=== PATIENT | female | born 1965 | race African-American/Black ===

== ENCOUNTER → 2019-03-10 | Outpatient (CLI) | payer MEDICARE, OTHER ==
[2019-03-07 10:58] LABS: BASOPHILS % 0.3 % (0.0-1.0); EOSINOPHILS % 0.5 % (0.0-6.0); HEMATOCRIT 36.9 % (34.2-44.1); HEMOGLOBIN 11.7 g/dL (12.0-16.0); LYMPHOCYTES # (AUTO) 3.8 (1.0-3.2); LYMPHOCYTES % 50.7 % (18.0-39.1); MEAN CORPUSCULAR HEMOGLOBIN 29.3 pg (28-32); MEAN CORPUSCULAR HGB CONC 31.7 g/dL (31-35); MEAN CORPUSCULAR VOLUME 92.5 fL (81-99); MONOCYTES # (AUTO) 0.4 (0.2-0.8); MONOCYTES % 5.8 % (4.4-11.3); NEUTROPHILS # (AUTO) 3.1 (2.1-6.9); NEUTROPHILS % 41.6 % (38.7-80.0); PLATELET COUNT 317 x10e3/uL (140-360); RED BLOOD COUNT 3.99 x10e6/uL (3.6-5.1); RED CELL DISTRIBUTION WIDTH 14.3 % (11.7-14.4)
[2019-03-07 11:20] LABS: ANION GAP 15.6 mmol/L (8-16); BLOOD UREA NITROGEN 13 mg/dL (7-26); BUN/CREATININE RATIO 18 (6-25); CALCIUM 9.4 mg/dL (8.4-10.2); CARBON DIOXIDE 31 mmol/L (22-29); CHLORIDE 98 mmol/L (98-107); CREATININE, SERUM 0.74 mg/dL (0.57-1.11); EST GLOMERULAR FILTRATION RATE > 60 ML/MIN (60-); GLUCOSE 132 mg/dL (74-118); POTASSIUM 3.6 mmol/L (3.5-5.1); SODIUM 141 mmol/L (136-145)
--- NOTE | 2019-03-07 12:26 | Diagnostic Imaging Report ---
EXAM: CHEST 2 VIEWS DATE: 03/07/2019 10:18 AM INDICATION: Local cord mass, preoperative evaluation COMPARISON: None FINDINGS: The trachea is midline. The lungs are symmetrically expanded without evidence for large focal consolidation, pneumothorax, or significant pleural effusion. The cardiac silhouette appears at the upper limits of normal for size. Mediastinal contours are unremarkable. No acute osseous abnormality is identified. The surrounding soft tissues are unremarkable. IMPRESSION: No acute cardiopulmonary process identified. Signed by: Dr. Jaime Ramirez MD on 03/07/2019 12:23 PM
[~2019-03-10] MED LIST: ACETAMINOPHEN 1000 MG/100 ML 100 ML IV ONE; BUPROPION XL150 MG PO; CLONAZEPAM1 MG PO; FLONASE; GABAPENTIN300 MG PO; HYDROCHLOROTHIA25 MG PO; HYDROCODON-ACE1 EAC9 PO; LEXAPRO10 MG PO; LIDOCAINE HCL (LTA) 4 ML SOLN ONE; LINZESS72 MCG PO; NITROGLYCERIN0.4 MG SL; NITROGLYCERIN1 EAC1 TOP; OXYCARBAZEPINE PO; OXYMETAZOLINE HCL 0.05% NAS 1 SPRAY BTL ONE; PLAVIX75 MG PO; SUGAMMADEX SODIUM 200 MG/2 ML VIAL IV ONE; TEMAZEPAM15 MG PO; TRULICITY1.5 MG/0.5 SC
--- OUTSIDE RECORDS SUMMARY | 2019-03-17 11:50 | XMS REPORT ---
Author [facility] Address Unknown Phone Unavailable Care Team Providers Care Egg Breaker Name Role Phone MARIA GUADALUPE LA Unavailable Unavailable Payers Payer Name Policy Type Policy Number Effective Date Expiration Date Problems This patient has no known problems. Allergies, Adverse Reactions, Alerts Allergy Name Allergy Type Status Severity Reaction(s) Onset Date Inactive Date Treating Clinician Comments Antihistamines - Alkylamine DA Active 2018-05-25 00:00:00 peanut DA Active 2018-05-25 00:00:00 hydrocodone DA Active 2018-05-25 00:00:00 lactose DA Active NH 2018-05-25 00:00:00 zolpidem DA Active 2018-05-25 00:00:00 latex DA Active 2018-05-25 00:00:00 peanut FA Active 2018-05-25 00:00:00 lactose FA Active NH 2018-05-25 00:00:00 hydrocodone DA Active 2018-03-08 00:00:00 zolpidem DA Active 2018-03-08 00:00:00 Antihistamines - Alkylamine DA Active 2018-02-10 00:00:00 peanut DA Active SV 2018-02-10 00:00:00 lactose DA Active NH 2018-02-10 00:00:00 latex DA Active 2018-02-10 00:00:00 LACTOSE INTOLERANT DA Active U 2017-03-11 00:00:00 RYE BREAD DA Active U 2017-03-11 00:00:00 peanut DA Active SV 2017-03-10 00:00:00 Antihistamines - Alkylamine DA Active SV 2014-08-13 00:00:00 lactose DA Active NH 2014-08-13 00:00:00 latex DA Active SV 2014-08-13 00:00:00 Medications This patient has no known medications. Results Test Description Test Time Test Comments Text Results Atomic Results Result Comments CHEST 2 VIEWS 2019-03-07 12:22:00 [facility] [address] [address] Patient Name: HIGINIO DENSON MR #: [id number] : 1965 Age/Sex: 53/F Req #: [id number] Adm Physician: Ordered by: BESSIE LYNN, MARIA GUADALUPE LYNN Report #: [id number] Location: OR Room/Bed: Procedure: [id number] DX/CHEST 2 VIEWS Exam Date: Exam Time: REPORT STATUS: Signed EXAM: CHEST 2 VIEWS DATE: 03/07/2019 10:18 AM INDICATION: Local cord mass, preoperative evaluation COMPARISON: None FINDINGS: The trachea is midline. The lungs are symmetrically expanded without evidence for large focal consolidation, pneumothorax, or significant pleural effusion. The cardiac silhouette appears at the upper limits of normal for size. Mediastinal contours are unremarkable. No acute osseous abnormality is identified. The surrounding soft tissues are unremarkable. IMPRESSION: No acute cardiopulmonary process identified. Signed by: Dr. Jaime Ramirez MD on 03/07/2019 12:23 PM Dictated By: JAIME RAMIREZ MD 1223 Transcribed By: JIN on 03/07/19 1223 COPY TO: MARIA GUADALUPE LA - MRI UPPER EX W/O CONT LT 2019-02-28 14:29:00 FAX: Shila Conway MD [phone] [place]: St: [facility] FAX: Karin Gamez [phone] Name: HIGINIO MACIAS [facility] : 1965 Age/S: 53/F [address] [place] [address] Unit #: [id number] Loc: [place] [address] Phys: Shila Ragland MD Acct: [id number] Dis Date: Status: REG CLI PHONE #: [phone] Exam Date: 02/28/2019 1012 FAX #: [phone] Reason: PAIN IN LEFT HAND EXAMS: CPT CODE: [id number] [place] [address] - MRI UPPER EX W/O CONT LT, 02/28/2019 8:10 AM INDICATION: Pain in hand COMPARISON: None TECHNIQUE: Multi-planar, multi-sequence MR imaging of the left hand was performed using routine protocol without gadolinium-based contrast. AREA IMAGED: Left hand FINDINGS: . Soft tissues: Soft tissues are unremarkable. No extra articular fluid collections. . Bones: No evidence for acute fracture. Marrow signals within normal limits. No bone marrow edema. . Joints: Moderate degenerative changes at the 1st CMC joint. There is also mild degenerative changes at the interphalangeal joints with small dorsal osteophytes. No joint effusions or synovitis. No evidence for bony erosions. . Tendons: The extensor and flexor tendons are intact. No evidence for tenosynovitis. . Additional Comments: None IMPRESSION: Osteoarthritis. No acute internal derangement. SL: EDVIN at 1429 Reported and signed by: Samuel Tong M.D. CC: Shila Ragland MD; Karin Adkins MD Technologist: RT Eulalio(R)(MR) Trnscrd Date/Time/By: 02/28/2019 (5843) : By: [email or web address] Orig Print D/T: S: 02/28/2019 (1497) PAGE 1 Signed Report - MRI UPPER EX W/O CONT RT 2019-02-28 14:20:00 FAX: Shila Conway MD [phone] [place]: St: REG FAX: Karin Gamez [phone] Name: HIGINIO MACIAS [facility] : 1965 Age/S: 53/F [address] [place] [address] Unit #: [id number] Loc: [place] [address] Phys: Shila Ragland MD Acct: [id number] Dis Date: Status: REG CLI PHONE #: [phone] Exam Date: 02/28/2019 1012 FAX #: [phone] Reason: PAIN IN RIGHT HAND EXAMS: CPT CODE: [id number] MRI UPPER EX W/[place] [address] - MRI UPPER EX W/O CONT RT, 02/28/2019 8:10 AM INDICATION: Right hand pain COMPARISON: None TECHNIQUE: Multi-planar, multi-sequence MR imaging of the right hand was performed using routine protocol without gadolinium-based contrast. AREA IMAGED: Hand FINDINGS: . Soft tissues: Soft tissues unremarkable. No extra-articular fluid collections . Bones: Marrow signal is within normal limits. No bone marrow edema. No evidence for fracture. . Joints: Minimal degenerative changes at the 1st CMC joint. Otherwise joint spaces are maintained. Negative for joint effusion or synovitis. No bony erosions. . Tendons: Extensor and flexor tendons are intact. No evidence for tenosynovitis. . Additional Comments: None IMPRESSION: 1. Minimal degenerative changes at the 1st CMC joint. Otherwise unremarkable MRI of the right hand. SL: EDVIN at 1420 Reported and signed by: Samuel Tong M.D. CC: Shila Ragland MD; Karin Adkins MD Technologist: RT Eulalio(R)(MR) Trnscrd Date/Time/By: 02/28/2019 (9050) : By: [email or web address] Orig Print D/T: S: 02/28/2019 (4801) PAGE 1 Signed Report - XR SHOULDER 2 + V LT 2019-02-28 11:30:00 FAX: Shila Conway MD [phone] [place]: St: REG FAX: Karin Gamez [phone] Name: HIGINIO MACIAS [facility] : 1965 Age/S: 53/F [address] [place] [address] Unit #: [id number] Loc: [place] [address] Phys: Shila Ragland MD Acct: [id number] Dis Date: Status: REG CLI PHONE #: [phone] Exam Date: 02/28/2019 1038 FAX #: [phone] Reason: M25.512, PAIN IN LEFT SHOULDER. EXAMS: CPT CODE: [id number] XR SHOULDER 2 + [place] [address] PROCEDURE: 3 views of the left shoulder INDICATION: 53-year-old female with left shoulder pain COMPARISON: None. FINDINGS: No acute fracture or dislocation identified. Humeral head is well-seated in the glenoid fossa. Calcifications noted along the superolateral aspect of the humeral head. IMPRESSION: 1. No acute fracture or dislocation identified in the left shoulder. 2. Findings consistent with calcific tendinitis. SL: [id number] at 1130 Reported and signed by: Tonya Gardner M.D. CC: Shila Ragland MD; Karin Adkins MD Technologist: RT Elicia(R) Trnscrd Date/Time/By: 02/28/2019 (4227) : By: [email or web address] Orig Print D/T: S: 02/28/2019 (2597) PAGE 1 Signed Report - XR C-SPINE 2-3 VIEWS 2018-08-23 14:21:00 FAX: Gino Baires MD [phone] [place]: St: REG FAX: Karin Gamez [phone] Name: HIGINIO MACIAS [facility] : 1965 Age/S: 53/F [address] [place] [address] Unit #: [id number] Loc: [place] [address] Phys: Gino Paredes MD Acct: [id number] Dis Date: Status: REG CLI PHONE #: [phone] Exam Date: 08/23/2018 1406 FAX #: [phone] Reason: M54.2, CERVICALGIA. EXAMS: CPT CODE: [id number] XR C-SPINE 2-3 VIEWS 36307 Cervical spine 3 views 08/23/2018 HISTORY: Neck pain FINDINGS: Open-mouth view of the dens is within normal limits. There is straightening of the cervical spine. Vertebral body heights are maintained. Alignment is preserved. Disc space narrowing and osteophytes are present at C5-6. Small osteophytes at C4-5 are noted. No prevertebral soft tissue swelling is noted. IMPRESSION: 1. No malalignment, fracture, or soft tissue swelling. 2. Mild degenerative disc disease at C5-6. 3. Straightening of cervical spine which may be related to patient positioning or muscle spasm. SL: [id number] at 1421 Reported and signed by: Jourdan Cotton M.D. CC: Gino Paredes M.D.; Karin Adkins MD Technologist: RT Na(Marjan) Trnscrd Date/Time/By: 08/23/2018 (9156) : By: [email or web address] Orig Print D/T: S: 08/23/2018 (6846) PAGE 1 Signed Report - XR L-SPINE 2/3 VIEWS 2018-08-23 14:20:00 FAX: Gino Baires MD [phone] [place]: St: REG FAX: Karin Gamez [phone] Name: HIGINIO MACIAS [facility] : 1965 Age/S: 53/F [address] [place] [address] Unit #: [id number] Loc: [place] [address] Phys: Gino Paredes MD Acct: [id number] Dis Date: Status: REG CLI PHONE #: [phone] Exam Date: 08/23/2018 1407 FAX #: [phone] Reason: M54.5, LOW BACK PAIN. EXAMS: CPT CODE: [id number] XR L-SPINE 2/3 VIEWS 15827 Lumbar spine 3 views 08/23/2018 HISTORY: Low back pain No prior exams are available for comparison FINDINGS: There is normal alignment of the lumbar spine. Vertebral body heights are maintained. Small osteophytes at L3-4 and L4-5 are noted. Facet sclerosis at L4-5 is noted. Pedicles and spinous processes are within normal limits. IMPRESSION: 1. No malalignment or fracture. 2. Mild degenerative changes at L3-4 and L4-5. SL: [id number] at 1420 Reported and signed by: Jourdan Cotton M.D. CC: Gino Paredes M.D.; Karin Adkins MD Technologist: RT Na(R) Trnscrd Date/Time/By: 08/23/2018 (0854) : By: [email or web address] Orig Print D/T: S: 08/23/2018 (3073) PAGE 1 Signed Report - XR KNEE 1 OR 2 V BI 2018-08-23 14:13:00 FAX: Gino Baires MD [phone] [place]: St: REG FAX: Karin Gamez [phone] Name: GONZALOMICHAUDHIGINIO [facility] : 1965 Age/S: 53/F [address] [place] [address] Unit #: [id number] Loc: [place] [address] Phys: Gino Paredes MD Acct: [id number] Dis Date: Status: REG CLI PHONE #: [phone] Exam Date: 08/23/2018 1402 FAX #: [phone] Reason: M25.561, M25.562, PAIN IN RIGHT, LEFT KNEE. EXAMS: CPT CODE: [id number] XR KNEE 1 [place] [address] BILATERAL KNEES, 2 VIEWS EACH 08/23/2018 COMPARISON: March 08, 2018 and August 13, 2014 CLINICAL HISTORY: M25.561, M25.562, PAIN IN RIGHT, LEFT KNEE. FINDINGS: No acute fracture or dislocation is noted. The left knee demonstrates a left knee prosthesis which is in anatomic alignment. No significant joint space narrowing or knee joint effusion is present. The right knee again demonstrates a small bony exostosis along the proximal aspect of the medial tibia. This is stable. No significant knee joint effusion noted in the right knee. CONCLUSION: No acute osseous abnormality. Status post changes of prior left knee arthroplasty. at 1413 Reported and signed by: Ronaldo Duke M.D. CC: Gino Paredes M.D.; Karin Adkins MD Technologist: RT Na(Marjan) Trnscrd Date/Time/By: 08/23/2018 (2771) : By: [email or web address] Orig Print D/T: S: 08/23/2018 (8012) PAGE 1 Signed Report - XR T-SPINE 2 VIEWS 2018-08-23 14:11:00 FAX: Gino Baires MD [phone] [place]: St: REG FAX: Karin Gamez [phone] Name: RAMANJonahHIGINIO [facility] : 1965 Age/S: 53/F [address] [place] [address] Unit #: [id number] Loc: [place] [address] Phys: Gino Paredes MD Acct: [id number] Dis Date: Status: REG CLI PHONE #: [phone] Exam Date: 08/23/2018 140 FAX #: [phone] Reason: M54.6, PAIN IN THORACIC SPINE. EXAMS: CPT CODE: [id number] XR T-SPINE 2 VIEWS 56775 THORACIC SPINE 2 VIEWS: Comparison: None CLINICAL HISTORY: Thoracic spine pain FINDINGS: The thoracic vertebra were normal in height. No fracture or bony destruction was seen. There are diffuse marginal osteophytes throughout the mid to lower thoracic spine. No lytic or blastic lesion is seen. IMPRESSION: No acute osseous abnormality. at 1411 Reported and signed by: Ronaldo Duke M.D. CC: Gino Paredes M.D.; Karin Adkins MD Technologist: RT Na(R) Trnscrd Date/Time/By: 08/23/2018 (1419) : By: [email or web address] Orig Print D/T: S: 08/23/2018 (5429) PAGE 1 Signed Report GLUBED 2018-06-13 13:32:00 GLUBED (test code=GLUBED) 237 mg/dL 70-110 [id number] 13:32:00* Test Item Value Reference Range Comments GLUBED (test code=GLUBED) 225 mg/dL 70-110 [id number] 16:58:00* Test Item Value Reference Range Comments GLUBED (test code=GLUBED) 233 mg/dL 70-110 [id number] 13:57:00* Test Item Value Reference Range Comments GLUBED (test code=GLUBED) 310 mg/dL 70-110 [id number] 13:57:00* Test Item Value Reference Range Comments GLUBED (test code=GLUBED) 222 mg/dL 70-110 [id number] 13:57:00* Test Item Value Reference Range Comments GLUBED (test code=GLUBED) 141 mg/dL 70-110 [id number] 05:58:00* Test Item Value Reference Range Comments GLUBED (test code=GLUBED) 227 mg/dL 70-110 [id number] 03:49:00* Test Item Value Reference Range Comments GLUBED (test code=GLUBED) 213 mg/dL 70-110 [id number] 03:49:00* Test Item Value Reference Range Comments GLUBED (test code=GLUBED) 228 mg/dL 70-110 [id number] 07:54:00* Test Item Value Reference Range Comments GLUBED (test code=GLUBED) 162 mg/dL 70-110 - XR CHEST 1 [id number] 22:10:00 FAX: Petey Panchal MD [phone] [place]: St: [facility] FAX: Kierra Aguero [phone] FAX: Karin Gamez [phone] Name: HIGINIO MACIAS [facility] : 1965 Age/S: 53/F [address] [facility] Unit #: [id number] Loc: [address] [place], [place] Phys: Kierra AgueroP [address] Acct: [id number] Dis Date: Status: ADM IN ONE #: [phone] Exam Date: 06/08/20182143 FAX #: [phone] Reason: SOB EXAMS: CPT CODE: [id number] XR CHEST 1 V 21465 Location: U19. CHEST, FRONTAL VIEW HISTORY: SOB FINDINGS: Since 06/02/18, the right subclavian l ine has been removed. There is some improvement in the bilateral mixed pu lmonary opacities. The heart remains enlarged. Degenerative changes affe ct the thoracic spine. IMPRESSION: Remov al of the right subclavian line. Mild improvement in the bilat eral mixed pulmonary opacities may relate to improving pulmonary edema a nd/or pneumonia. at 2210 Reported and signed by: Bibi Bazan M.D. CC: Petey Connor MD; Kierra Aguero; Karin Adkins MD Technologist: DANA FERRIS; NARDA CASTELLANOS Trnscrd Date/Time/By: 9 (9114) : By: [email or web address] PAGE 1 Signed Report FAX: Petey Panchal MD [phone] [place]: St: [facility] FAX: Kierra Aguero FN [phone] FAX: Karin Gamez [phone] Name: HIGINIO MACIAS [facility] : 1965 Age/S: 53/F [address] [facility] Unit #: [id number] Loc: [address] [place], [place] Phys: Kierra Aguero [employer] [address] Acct: [id number] Dis Date: Status: ADM IN PHONE #: [phone] Exam Date: 06/08/20182143 FAX #: [phone] Reason: SOB EXAMS: CPT CODE: [id number] XR CHEST 1 V 59272 <Continued> Orig Print D/T: S: 06/08/2018 (9587) PAGE 2 Signed Report [id number] 21:22:00* Test Item Value Reference Range Comments GLUBED (test code=GLUBED) 221 mg/dL 70-110 [id number] 21:22:00* Test Item Value Reference Range Comments GLUBED (test code=GLUBED) 173 mg/dL 70-110 [id number] 16:01:00* Test Item Value Reference Range Comments GLUBED (test code=GLUBED) 203 mg/dL 70-110 BASIC METABOLIC [id number] 06:06:00* Test Item Value Reference Range Comments SODIUM (test code=NA) 139 mmol/l 134.0-147.0 POTASSIUM (test code=K) 4.3 mmol/L 3.6-5.2 CHLORIDE (test code=CL) 101 mmol/l 98.0-107.0 CARBON DIOXIDE (test code=CO2) 27.8 mmol/l 21.0-33.0 ANION GAP (test code=GAP) 14.5 0-20 GLUCOSE (test code=GLU) 199 mg/dl 70.0-110.0 BLOOD UREA NITROGEN (test code=BUN) 13 mg/dl 7.0-18.0 CREATININE (test code=CREAT) 0.63 mg/dL 0.60-1.30 GFR NON BLACK (test code=GFRNONBLACK) 105 mL/min 90-95 GFR BLACK (test code=GFRBLACK) 127 mL/min 109-115 CALCIUM (test code=CA) 10.0 mg/dl 8.0-10.5 [id number] 04:39:00* Test Item Value Reference Range Comments GLUBED (test code=GLUBED) 202 mg/dL 70-110 [id number] 19:19:00* Test Item Value Reference Range Comments GLUBED (test code=GLUBED) 217 mg/dL 70-110 [id number] 16:58:00* Test Item Value Reference Range Comments GLUBED (test code=GLUBED) 245 mg/dL 70-110 [id number] 10:57:00* Test Item Value Reference Range Comments GLUBED (test code=GLUBED) 200 mg/dL 70-110 [id number] 10:57:00* Test Item Value Reference Range Comments GLUBED (test code=GLUBED) 180 mg/dL 70-110 [id number] 00:29:00* Test Item Value Reference Range Comments GLUBED (test code=GLUBED) 214 mg/dL 70-110 [id number] 22:46:00* Test Item Value Reference Range Comments GLUBED (test code=GLUBED) 253 mg/dL 70-110 [id number] 20:43:00* Test Item Value Reference Range Comments GLUBED (test code=GLUBED) 295 mg/dL 70-110 [id number] 20:43:00* Test Item Value Reference Range Comments GLUBED (test code=GLUBED) 190 mg/dL 70-110 [id number] 20:43:00* Test Item Value Reference Range Comments GLUBED (test code=GLUBED) 175 mg/dL 70-110 [id number] 15:35:00* Test Item Value Reference Range Comments GLUBED (test code=GLUBED) 187 mg/dL 70-110 BASIC METABOLIC [id number] 07:51:00* Test Item Value Reference Range Comments SODIUM (test code=NA) 140 mmol/l 134.0-147.0 POTASSIUM (test code=K) 3.4 mmol/L 3.6-5.2 CHLORIDE (test code=CL) 98 mmol/l 98.0-107.0 CARBON DIOXIDE (test code=CO2) 30.1 mmol/l 21.0-33.0 ANION GAP (test code=GAP) 15.3 0-20 GLUCOSE (test code=GLU) 197 mg/dl 70.0-110.0 BLOOD UREA NITROGEN (test code=BUN) 14 mg/dl 7.0-18.0 CREATININE (test code=CREAT) 0.80 mg/dL 0.60-1.30 GFR NON BLACK (test code=GFRNONBLACK) 80 mL/min 90-95 GFR BLACK (test code=GFRBLACK) 96 mL/min 109-115 CALCIUM (test code=CA) 10.5 mg/dl 8.0-10.5 PER NURSE UNABLE TO PULL FROM LINELINE [id number] 07:51:00* Test Item Value Reference Range Comments MAGNESIUM (test code=MAG) 1.9 mg/dl 1.8-2.4 PER NURSE UNABLE TO PULL FROM LINELINE DRAWCBC W/AUTO [id number] 07:47:00* Test Item Value Reference Range Comments WHITE BLOOD CELL (test code=WBC) 9.1 K/mm3 4.5-11.0 RED BLOOD CELL (test code=RBC) 4.39 M/mm3 3.80-5.20 HEMOGLOBIN (test code=HGB) 13.0 gm/dL 12.0-16.0 HEMATOCRIT (test code=HCT) 41.8 % 36.0-48.0 MEAN CELL VOLUME (test code=MCV) 95.2 UM3 82.0-99.0 MEAN CELL HGB (test code=MCH) 29.6 UUG 25.5-32.5 MEAN CELL HGB CONCETRATION (test code=MCHC) 31.1 gm/dL 29.0-35.5 RED CELL DISTRIBUTION WIDTH (test code=RDW) 14.1 % 11.5-15.0 RED CELL DISTRIBUTION WIDTH SD (test code=RDW-SD) 50.0 fL 34.8-50.2 PLATELET COUNT (test code=PLT) 731 K/mm3 150-400 MEAN PLATELET VOLUME (test code=MPV) 9.7 fl 7.4-10.4 NEUTROPHIL % (test code=NT%) 46.4 % 49.0-76.0 IMMATURE GRANULOCYTE % (test code=IG%) 0.6 % 0.0-0.4 LYMPHOCYTE % (test code=LY%) 42.1 % 23.0-38.0 MONOCYTE % (test code=MO%) 7.2 % 1.0-10.0 EOSINOPHIL % (test code=EO%) 3.1 % 1.0-5.0 BASOPHIL % (test code=BA%) 0.6 % 0.0-1.0 NEUTROPHIL # (test code=NT#) 4.2 K/mm3 2.4-6.3 IMMATURE GRANULOCYTE # (test code=IG#) 0.05 x10 3/uL 0.00-0.07 LYMPHOCYTE # (test code=LY#) 3.8 K/mm3 1.2-4.0 MONOCYTE # (test code=MO#) 0.7 K/mm3 0.0-0.6 EOSINOPHIL # (test code=EO#) 0.3 K/MM3 0.0-0.7 BASOPHIL # (test code=BA#) 0.1 K/mm3 0.0-0.2 PER NURSE UNABLE TO PULL FROM LINELINE [id number] 02:52:00* Test Item Value Reference Range Comments GLUBED (test code=GLUBED) 194 mg/dL 70-110 [id number] 17:54:00* Test Item Value Reference Range Comments GLUBED (test code=GLUBED) 204 mg/dL 70-110 [id number] 12:50:00* Test Item Value Reference Range Comments GLUBED (test code=GLUBED) 193 mg/dL 70-110 [id number] 12:50:00* Test Item Value Reference Range Comments GLUBED (test code=GLUBED) 190 mg/dL 70-110 [id number] 10:00:00* Test Item Value Reference Range Comments GLUBED (test code=GLUBED) 213 mg/dL 70-110 [id number] 08:31:00* Test Item Value Reference Range Comments GLUBED (test code=GLUBED) 186 mg/dL 70-110 [id number] 08:31:00* Test Item Value Reference Range Comments GLUBED (test code=GLUBED) 179 mg/dL 70-110 BASIC METABOLIC [id number] 06:13:00* Test Item Value Reference Range Comments SODIUM (test code=NA) 141 mmol/l 134.0-147.0 POTASSIUM (test code=K) 3.1 mmol/L 3.6-5.2 CHLORIDE (test code=CL) 100 mmol/l 98.0-107.0 CARBON DIOXIDE (test code=CO2) 33.5 mmol/l 21.0-33.0 ANION GAP (test code=GAP) 10.6 0-20 GLUCOSE (test code=GLU) 195 mg/dl 70.0-110.0 BLOOD UREA NITROGEN (test code=BUN) 15 mg/dl 7.0-18.0 CREATININE (test code=CREAT) 0.63 mg/dL 0.60-1.30 GFR NON BLACK (test code=GFRNONBLACK) 105 mL/min 90-95 GFR BLACK (test code=GFRBLACK) 127 mL/min 109-115 CALCIUM (test code=CA) 9.7 mg/dl 8.0-10.5 LINE DRAWCBC W/AUTO [id number] 05:57:00* Test Item Value Reference Range Comments WHITE BLOOD CELL (test code=WBC) 9.0 K/mm3 4.5-11.0 RED BLOOD CELL (test code=RBC) 3.47 M/mm3 3.80-5.20 HEMOGLOBIN (test code=HGB) 10.2 gm/dL 12.0-16.0 HEMATOCRIT (test code=HCT) 32.6 % 36.0-48.0 MEAN CELL VOLUME (test code=MCV) 93.9 UM3 82.0-99.0 MEAN CELL HGB (test code=MCH) 29.4 UUG 25.5-32.5 MEAN CELL HGB CONCETRATION (test code=MCHC) 31.3 gm/dL 29.0-35.5 RED CELL DISTRIBUTION WIDTH (test code=RDW) 14.2 % 11.5-15.0 RED CELL DISTRIBUTION WIDTH SD (test code=RDW-SD) 49.0 fL 34.8-50.2 PLATELET COUNT (test code=PLT) 683 K/mm3 150-400 MEAN PLATELET VOLUME (test code=MPV) 9.0 fl 7.4-10.4 NEUTROPHIL % (test code=NT%) 59.2 % 49.0-76.0 IMMATURE GRANULOCYTE % (test code=IG%) 0.6 % 0.0-0.4 LYMPHOCYTE % (test code=LY%) 30.5 % 23.0-38.0 MONOCYTE % (test code=MO%) 6.6 % 1.0-10.0 EOSINOPHIL % (test code=EO%) 2.5 % 1.0-5.0 BASOPHIL % (test code=BA%) 0.6 % 0.0-1.0 NEUTROPHIL # (test code=NT#) 5.4 K/mm3 2.4-6.3 IMMATURE GRANULOCYTE # (test code=IG#) 0.05 x10 3/uL 0.00-0.07 LYMPHOCYTE # (test code=LY#) 2.8 K/mm3 1.2-4.0 MONOCYTE # (test code=MO#) 0.6 K/mm3 0.0-0.6 EOSINOPHIL # (test code=EO#) 0.2 K/MM3 0.0-0.7 BASOPHIL # (test code=BA#) 0.1 K/mm3 0.0-0.2 LINE [id number] 22:59:00* Test Item Value Reference Range Comments GLUBED (test code=GLUBED) 180 mg/dL 70-110 BASIC METABOLIC [id number] 07:28:00* Test Item Value Reference Range Comments SODIUM (test code=NA) 142 mmol/l 134.0-147.0 POTASSIUM (test code=K) 3.1 mmol/L 3.6-5.2 CHLORIDE (test code=CL) 99 mmol/l 98.0-107.0 CARBON DIOXIDE (test code=CO2) 35.1 mmol/l 21.0-33.0 ANION GAP (test code=GAP) 11.0 0-20 GLUCOSE (test code=GLU) 186 mg/dl 70.0-110.0 BLOOD UREA NITROGEN (test code=BUN) 13 mg/dl 7.0-18.0 CREATININE (test code=CREAT) 0.62 mg/dL 0.60-1.30 GFR NON BLACK (test code=GFRNONBLACK) 107 mL/min 90-95 GFR BLACK (test code=GFRBLACK) 130 mL/min 109-115 CALCIUM (test code=CA) 9.7 mg/dl 8.0-10.5 [id number] 04:52:00* Test Item Value Reference Range Comments GLUBED (test code=GLUBED) 177 mg/dL 70-110 [id number] 21:36:00* Test Item Value Reference Range Comments GLUBED (test code=GLUBED) 164 mg/dL 70-110 [id number] 21:36:00* Test Item Value Reference Range Comments GLUBED (test code=GLUBED) 191 mg/dL 70-110 BASIC METABOLIC [id number] 05:51:00* Test Item Value Reference Range Comments SODIUM (test code=NA) 143 mmol/l 134.0-147.0 POTASSIUM (test code=K) 3.1 mmol/L 3.6-5.2 CHLORIDE (test code=CL) 98 mmol/l 98.0-107.0 CARBON DIOXIDE (test code=CO2) 39.6 mmol/l 21.0-33.0 ANION GAP (test code=GAP) 8.5 0-20 GLUCOSE (test code=GLU) 221 mg/dl 70.0-110.0 BLOOD UREA NITROGEN (test code=BUN) 15 mg/dl 7.0-18.0 CREATININE (test code=CREAT) 0.62 mg/dL 0.60-1.30 GFR NON BLACK (test code=GFRNONBLACK) 107 mL/min 90-95 GFR BLACK (test code=GFRBLACK) 130 mL/min 109-115 CALCIUM (test code=CA) 9.5 mg/dl 8.0-10.5 [id number] 05:51:00* Test Item Value Reference Range Comments MAGNESIUM (test code=MAG) 1.9 mg/dl 1.8-2.4 BASIC METABOLIC [id number] 05:50:00* Test Item Value Reference Range Comments SODIUM (test code=NA) 143 mmol/l 134.0-147.0 POTASSIUM (test code=K) 3.1 mmol/L 3.6-5.2 CHLORIDE (test code=CL) 98 mmol/l 98.0-107.0 CARBON DIOXIDE (test code=CO2) 39.6 mmol/l 21.0-33.0 ANION GAP (test code=GAP) 8.5 0-20 GLUCOSE (test code=GLU) mg/dl 70.0-110.0 BLOOD UREA NITROGEN (test code=BUN) mg/dl 7.0-18.0 CREATININE (test code=CREAT) mg/dL 0.60-1.30 GFR NON BLACK (test code=GFRNONBLACK) mL/min 90-95 GFR BLACK (test code=GFRBLACK) mL/min 109-115 CALCIUM (test code=CA) mg/dl 8.0-10.5 [id number] 05:50:00* Test Item Value Reference Range Comments MAGNESIUM (test code=MAG) mg/dl 1.8-2.4 [id number] 22:41:00* Test Item Value Reference Range Comments GLUBED (test code=GLUBED) 170 mg/dL 70-110 [id number] 21:54:00* Test Item Value Reference Range Comments GLUBED (test code=GLUBED) 191 mg/dL 70-110 [id number] 21:53:00* Test Item Value Reference Range Comments GLUBED (test code=GLUBED) 224 mg/dL 70-110 [id number] 11:52:00* Test Item Value Reference Range Comments GLUBED (test code=GLUBED) 154 mg/dL 70-110 [id number] 11:52:00* Test Item Value Reference Range Comments GLUBED (test code=GLUBED) 180 mg/dL 70-110 [id number] 11:52:00* Test Item Value Reference Range Comments GLUBED (test code=GLUBED) 166 mg/dL 70-110 [id number] 11:52:00* Test Item Value Reference Range Comments GLUBED (test code=GLUBED) 197 mg/dL 70-110 - XR CHEST 1 [id number] 08:42:00 FAX: Petey Panchal MD [phone] [place]: St: ADM FAX: Jemal Salvador MD [phone] FAX: Karin Gamez [phone] Name: HIGINIO MACIAS [facility] : 1965 Age/S: 53/F [address] [facility] Unit #: [id number] Loc: [address] Phys: [place] [address] Acct: [id number] Dis Date: Status: ADM IN [facility] #: [phone] Exam Date: 06/02/2018 0551 FAX #: [phone] Reason: resp failure EXAMS: CPT CODE: [id number] XR CHEST 1 V 78350 Location: U19. CHEST, FRONTAL VIEW HISTORY: resp failure FINDINGS: Since 06/01/18, the endotrach eal nasogastric tubes have been removed. There is continued diffuse bilat eral mixed pulmonary opacities and mild cardiomegaly. The right subclavia n line remains in the SVC. Degenerative changes affect the thoracic spine . IMPRESSION: Interval removal of endotracheal and nasogastric tubes. Continued cardiomegaly with bilateral mixed pulmonary opacities may relate to pulmonary edema, pneumonia and/o r ARDS. at 0842 Reported and signed by: Bibi Bazan M.D. CC: Petey Connor MD; Jemal Covarrubias MD; Karin Adkins MD Technologist: SO [employer] Trnscrd Date/Time/By: 06/02/2018 (0842) : By: [email or web address] PAGE 1 Signed Report FAX: Petey Panchal MD [phone] [place]: St: ADM FAX: Jemal Salvador MD [phone] FAX: Karin Simms [phone] Name: HIGINIO MACIAS [facility] [place] : 1965 Age/S: 53/F [address] [facility] Unit #: [id number] Loc: [address] Phys: [place] [address] Acct: [id number] Dis Date: Status: ADM IN PHONE #: [phone] Exam Date: 06/02/2018 0551 FAX #: [phone] Reason: resp failure EXAMS: CPT CODE: [id number] XR CHEST 1 V 42177 < Continued> Orig Print D/T: S: 06/02/2018 (0845) PAGE 2 Signed Report [id number] 06:20:00* Test Item Value Reference Range Comments HGBA1C% (test code=HGBA1C%) 7.3 %A1C 4.8-6.0 ESTIMATED AVERAGE GLUCOSE (test code=EAG) 163 MG/DL BASIC METABOLIC [id number] 06:17:00* Test Item Value Reference Range Comments SODIUM (test code=NA) 146 mmol/l 134.0-147.0 POTASSIUM (test code=K) 2.8 mmol/L 3.6-5.2 CHLORIDE (test code=CL) 100 mmol/l 98.0-107.0 CARBON DIOXIDE (test code=CO2) 38.9 mmol/l 21.0-33.0 ANION GAP (test code=GAP) 9.9 0-20 GLUCOSE (test code=GLU) 171 mg/dl 70.0-110.0 BLOOD UREA NITROGEN (test code=BUN) 18 mg/dl 7.0-18.0 CREATININE (test code=CREAT) 0.54 mg/dL 0.60-1.30 GFR NON BLACK (test code=GFRNONBLACK) 126 mL/min 90-95 GFR BLACK (test code=GFRBLACK) 152 mL/min 109-115 CALCIUM (test code=CA) 9.5 mg/dl 8.0-10.5 [id number] 06:17:00* Test Item Value Reference Range Comments MAGNESIUM (test code=MAG) 1.8 mg/dl 1.8-2.4 CBC W/AUTO [id number] 06:09:00* Test Item Value Reference Range Comments WHITE BLOOD CELL (test code=WBC) 8.0 K/mm3 4.5-11.0 RED BLOOD CELL (test code=RBC) 3.28 M/mm3 3.80-5.20 HEMOGLOBIN (test code=HGB) 9.6 gm/dL 12.0-16.0 HEMATOCRIT (test code=HCT) 31.5 % 36.0-48.0 MEAN CELL VOLUME (test code=MCV) 96.0 UM3 82.0-99.0 MEAN CELL HGB (test code=MCH) 29.3 UUG 25.5-32.5 MEAN CELL HGB CONCETRATION (test code=MCHC) 30.5 gm/dL 29.0-35.5 RED CELL DISTRIBUTION WIDTH (test code=RDW) 14.4 % 11.5-15.0 RED CELL DISTRIBUTION WIDTH SD (test code=RDW-SD) 50.9 fL 34.8-50.2 PLATELET COUNT (test code=PLT) 467 K/mm3 150-400 MEAN PLATELET VOLUME (test code=MPV) 9.8 fl 7.4-10.4 NEUTROPHIL % (test code=NT%) 52.0 % 49.0-76.0 IMMATURE GRANULOCYTE % (test code=IG%) 1.0 % 0.0-0.4 LYMPHOCYTE % (test code=LY%) 35.5 % 23.0-38.0 MONOCYTE % (test code=MO%) 7.0 % 1.0-10.0 EOSINOPHIL % (test code=EO%) 4.0 % 1.0-5.0 BASOPHIL % (test code=BA%) 0.5 % 0.0-1.0 NEUTROPHIL # (test code=NT#) 4.1 K/mm3 2.4-6.3 IMMATURE GRANULOCYTE # (test code=IG#) 0.08 x10 3/uL 0.00-0.07 LYMPHOCYTE # (test code=LY#) 2.8 K/mm3 1.2-4.0 MONOCYTE # (test code=MO#) 0.6 K/mm3 0.0-0.6 EOSINOPHIL # (test code=EO#) 0.3 K/MM3 0.0-0.7 BASOPHIL # (test code=BA#) 0.0 K/mm3 0.0-0.2 [id number] 21:48:00* Test Item Value Reference Range Comments GLUBED (test code=GLUBED) 189 mg/dL 70-110 [id number] 21:48:00* Test Item Value Reference Range Comments GLUBED (test code=GLUBED) 195 mg/dL 70-110 [id number] 21:48:00* Test Item Value Reference Range Comments GLUBED (test code=GLUBED) 178 mg/dL 70-110 - XR CHEST 1 [id number] 08:22:00 FAX: Petey Panchal MD [phone] [place]: St: [facility] FAX: Jemal Salvador MD [phone] FAX: Karin Gamez [phone] Name: BECKYMANHIGINIO [facility] : 1965 Age/S: 53/F [address] [facility] Unit #: [id number] Loc: [address]: [place] [address] Acct: [id number] Dis Date: Status: ADM IN [facility] #: [phone] Exam Date: 06/01/2018 05 FAX #: [phone] Reason: resp failure EXAMS: CPT CODE: [id number] XR CHEST 1 V 74994 Location: U19. CHEST, FRONTAL VIEW HISTORY: resp failure FINDINGS: Since 05/31/18, the endotrach eal nasogastric tubes as well as right subclavian line are stable in posit ion. Continued cardiomegaly with pulmonary edema and probable layering pl eural effusions. Degenerative changes affect the thoracic spine. IMPRESSION: No significant change in the support tubes and lines or the probable pulmonary edema and pleural effusions. at 0822 Reported and signed by: Bibi Bazan M.D. CC: Petey Connor MD; Jemal Covarrubias MD; Karin Adkins MD Technologist: [employer] Trnscrd Date/Time/By: 06/01/2018 (0822) : By: Galileo [email or web address] PAGE 1 Signed Report FAX: Petey Panchal MD [phone] [place]: St: [facility] FAX: Jemal Salvador MD [phone] FAX: Bud Gamez [phone] Name: HIGINIO MACIAS [facility] : 1965 Age/S: 53/F [address] Unit #: [id number] Loc: [address] [place], [place]: [place] [address] [address]: [id number] Dis Date: Status: ADM IN PHONE #: [phone] Exam Date: 06/01/2018 0531 FAX #: [phone] Reason: resp failure EXAMS: CPT CODE: [id number] XR CHEST 1 V 36137 < Continued> Orig Print D/T: S: 06/01/2018 (7651) PAGE 2 Signed Report [id number] 07:20:00* Test Item Value Reference Range Comments GLUBED (test code=GLUBED) 187 mg/dL 70-110 BASIC METABOLIC [id number] 05:39:00* Test Item Value Reference Range Comments SODIUM (test code=NA) 144 mmol/l 134.0-147.0 POTASSIUM (test code=K) 2.9 mmol/L 3.6-5.2 CHLORIDE (test code=CL) 101 mmol/l 98.0-107.0 CARBON DIOXIDE (test code=CO2) 37.5 mmol/l 21.0-33.0 ANION GAP (test code=GAP) 8.4 0-20 GLUCOSE (test code=GLU) 194 mg/dl 70.0-110.0 BLOOD UREA NITROGEN (test code=BUN) 17 mg/dl 7.0-18.0 CREATININE (test code=CREAT) 0.58 mg/dL 0.60-1.30 GFR NON BLACK (test code=GFRNONBLACK) 116 mL/min 90-95 GFR BLACK (test code=GFRBLACK) 140 mL/min 109-115 CALCIUM (test code=CA) 9.3 mg/dl 8.0-10.5 [id number] 05:39:00* Test Item Value Reference Range Comments MAGNESIUM (test code=MAG) 1.7 mg/dl 1.8-2.4 [id number] 21:40:00* Test Item Value Reference Range Comments GLUBED (test code=GLUBED) 215 mg/dL 70-110 - XR CHEST 1 [id number] 14:01:00 FAX: Petey Panchal MD [phone] [place]: St: ADM FAX: Jemal Salvador MD [phone] FAX: Karin Gamez [phone] Name: HIGINIO MACIAS [facility] : 1965 Age/S: 53/F [address] [facility] Unit #: [id number] Loc: [address] [place], [place]: [place] [address] Acct: [id number] Dis Date: Status: ADM IN [facility] #: [phone] Exam Date: 05/31/2018 1355 FAX #: [phone] Reason: ET TUBE PLACEMENT EXAMS: CPT CODE: [id number] XR CHEST 1 V 77622 Examination: Chest 1 view Location code: S17 Comparison: Chest [facility] 2018 Discussion: Clinical history is remarkab le for ET tube placement, respiratory distress. Right subclavian central venous catheter is in good position. Endotracheal tube is near the level of the clavicles, nasogastric tube is in good position. Cardiac silhouett e is slightly enlarged, mild pulmonary edema is present. Underlying infil trates could be present. Impression: 1. Support lines and tubes as described above, alveolar airspace disease. at 1401 Repor maximiliano and signed by: Gonzalez Valentine M.D. CC: Petey Connor MD; Jemal Covarrubias MD; Karin Adkins MD Technologist: JACKIE HOWELL Trnscrd Date/Time/By: 05/31/2018 (1401) : By: Sergio [email or web address] PAGE 1 Signed Report FAX: Petey Panchal MD [phone] [place]: St: ADM FAX: Jemal Salvador MD [phone] FAX: Bry Gamez [phone] Name: HIGINIO MACIAS [facility] : 1965 Age/S: 53/F [address] Unit #: [id number] Loc: [address] [place], [place]: [place] [address] A cct: [id number] Dis Date: Status: ADM IN PHONE #: [phone] Exam Date: 05/31/2018 1359 FAX #: [phone] Reason: ET TUBE PLACEMENT EXAMS: CPT CODE: [id number] XR CHEST 1 V 53670 < Continued> Orig Print D/T: S: 05/31/2018 (9768) PAGE 2 Signed Report [id number] 06:00:00* Test Item Value Reference Range Comments PHOSPHOROUS (test code=PHOS) 3.1 mg/dl 2.5-4.9 BASIC METABOLIC [id number] 05:58:00* Test Item Value Reference Range Comments SODIUM (test code=NA) 143 mmol/l 134.0-147.0 POTASSIUM (test code=K) 3.0 mmol/L 3.6-5.2 CHLORIDE (test code=CL) 101 mmol/l 98.0-107.0 CARBON DIOXIDE (test code=CO2) 33.4 mmol/l 21.0-33.0 ANION GAP (test code=GAP) 11.6 0-20 GLUCOSE (test code=GLU) 216 mg/dl 70.0-110.0 BLOOD UREA NITROGEN (test code=BUN) 15 mg/dl 7.0-18.0 CREATININE (test code=CREAT) 0.54 mg/dL 0.60-1.30 GFR NON BLACK (test code=GFRNONBLACK) 126 mL/min 90-95 GFR BLACK (test code=GFRBLACK) 152 mL/min 109-115 CALCIUM (test code=CA) 9.1 mg/dl 8.0-10.5 [id number] 05:58:00* Test Item Value Reference Range Comments MAGNESIUM (test code=MAG) 1.8 mg/dl 1.8-2.4 CBC W/AUTO [id number] 05:30:00* Test Item Value Reference Range Comments WHITE BLOOD CELL (test code=WBC) 8.3 K/mm3 4.5-11.0 RED BLOOD CELL (test code=RBC) 2.84 M/mm3 3.80-5.20 HEMOGLOBIN (test code=HGB) 8.2 gm/dL 12.0-16.0 HEMATOCRIT (test code=HCT) 27.2 % 36.0-48.0 MEAN CELL VOLUME (test code=MCV) 95.8 UM3 82.0-99.0 MEAN CELL HGB (test code=MCH) 28.9 UUG 25.5-32.5 MEAN CELL HGB CONCETRATION (test code=MCHC) 30.1 gm/dL 29.0-35.5 RED CELL DISTRIBUTION WIDTH (test code=RDW) 15.2 % 11.5-15.0 PLATELET COUNT (test code=PLT) 260 K/mm3 150-400 MEAN PLATELET VOLUME (test code=MPV) 10.6 fl 7.4-10.4 NEUTROPHIL % (test code=NT%) 63.4 % 49.0-76.0 LYMPHOCYTE % (test code=LY%) 27.0 % 23.0-38.0 MONOCYTE % (test code=MO%) 6.2 % 1.0-10.0 EOSINOPHIL % (test code=EO%) 2.2 % 1.0-5.0 BASOPHIL % (test code=BA%) 0.2 % 0.0-1.0 NEUTROPHIL # (test code=NT#) 5.3 K/mm3 2.4-6.3 LYMPHOCYTE # (test code=LY#) 2.3 K/mm3 1.2-4.0 MONOCYTE # (test code=MO#) 0.5 K/mm3 0.0-0.6 EOSINOPHIL # (test code=EO#) 0.2 K/MM3 0.0-0.7 BASOPHIL # (test code=BA#) 0.0 K/mm3 0.0-0.2 - XR CHEST 1 [id number] 05:26:00 FAX: Petey Panchal MD [phone] [place]: EM St: [facility] FAX: Jemal Salvador MD [phone] FAX: Karin Gamez [phone] Name: HIGINIO MACIAS [facility] : 1965 Age/S: 53/F [address] [facility] Unit #: [id number] Loc: [address] Phys: [place] [address] Acct: [id number] Dis Date: Status: ADM IN [facility] #: [phone] Exam Date: 05/31/2018 05 FAX #: [phone] Reason: resp failure EXAMS: CPT CODE: [id number] XR CHEST 1 V 44699 HISTORY: Respi ratory failure Comparison to May 30, 2018 Location code: B2 FINDINGS: Frontal view of the chest demonstrates a minima lly prominent cardiomediastinal silhouette. The trachea is midline. Centra l venous congestion with mild interstitial and alveolar edema. Small bilat eral effusions with atelectasis. No pneumothorax. ET tube is just above the clavicular heads. NG tube is in the stomach. Right subclav radha catheter in good position. The bones are intact. IMPRESSION: No significant interval change at 0526 Reported and sig jose c by: López Restrepo M.D. CC: Petey Connor MD; Jemal palacios MD; Karin Adkins MD Technologist: BEAR MCINTOSH Trnscrd Date/Time/By: 05/31/2018 (0526) : By: [email or web address] PAGE 1 Signed Report FAX: Petey Panchal MD [phone] [place]: EM St: ADM FAX: Jemal Salvador MD [phone] FAX: Orestes Karin Adkins ----- Name: HIGINIO MACIAS [facility] : 1965 Age/S: 53/F [address] [facility] Unit #: [id number] Loc: [address] Phys: [place] [address] Acct: [id number] Dis Date: Status: ADM IN PHONE #: [phone] Exam Date: 05/31/2018 05 FAX #: [phone] Reason: resp failure EXAM S: CPT CODE: [id number] XR [address] 1 V 48278 <Continued> Orig Print D/T: S: 05/31/2018 (0529) PAGE 2 Signed Report [id number] 02:59:00* Test Item Value Reference Range Comments GLUBED (test code=GLUBED) 174 mg/dL 70-110 [id number] 22:04:00* Test Item Value Reference Range Comments GLUBED (test code=GLUBED) 194 mg/dL 70-110 [id number] 22:04:00* Test Item Value Reference Range Comments GLUBED (test code=GLUBED) 164 mg/dL 70-110 [id number] 22:04:00* Test Item Value Reference Range Comments GLUBED (test code=GLUBED) 175 mg/dL 70-110 [id number] 22:04:00* Test Item Value Reference Range Comments GLUBED (test code=GLUBED) 194 mg/dL 70-110 [id number] 22:04:00* Test Item Value Reference Range Comments GLUBED (test code=GLUBED) 157 mg/dL 70-110 [id number] 22:04:00* Test Item Value Reference Range Comments GLUBED (test code=GLUBED) 203 mg/dL 70-110 - XR CHEST 1 [id number] 10:43:00 FAX: Eber Rosas MD [phone] [place]: St: [facility] FAX: Petey Panchal MD [phone] FAX: Karin Gamez [phone] Name: HIGINIO MACIAS [facility] : 1965 Age/S: 53/F [address] [facility] Unit #: [id number] Loc: [address] Phys: [place] [address] Acct: [id number] Dis Date: Status: ADM IN PH ONE #: [phone] Exam Date: 05/30/2018 1040 FAX #: [phone] Reason: sob EXAMS: CPT CODE: [id number] XR CHEST 1 V 65307 Chest Radiogra ph History: sob Comparison: May 29, 2018 Location: R16 A single frontal view of the chest is submitted. The heart appears unchanged in size. There are pa tchy opacities in the lungs bilaterally. The bones appear unchanged. The endotracheal tube, nasogastric tube and vascular catheter appear unch anged. IMPRESSION: There are patchy op acities in the lungs bilaterally. This could be due to pulmonary edema or pneumonia. Compared to the prior exam, there has been no si gnificant change. at 1043 Reported and signed by: Aleksandr Campuzano M.D. CC: Eber Kraus MD; Erickson Connor MD; Karin Adkins MD Technologist: SURY GANDARA Trnscrd Date/Time/By: 05/30/2018 (1043) : By: GalileoPMT PAGE 1 Signed Report FAX: Eber Rosas MD [phone] [place]: St: ADM FAX: Petey Panchal MD [phone] FAX: Orestes Karin Adkins [phone] Name: HIGINIO MACIAS [facility] : 1965 Age/S: 53/F [address] [facility] Unit #: [id number] Loc: [address] Phys: [place] [address] Acct: [id number] Dis Date: Status: ADM IN PHONE #: [phone] Exam Date: 05/30/2018 1040 FAX #: [phone] Reason: sob EXAMS: CPT CODE: [id number] XR CHEST 1 V 86495 <Continued> Orig Print D/T: S: 05/30/2018 (4841) PAGE 2 Signed Report BASIC METABOLIC [id number] 07:56:00* Test Item Value Reference Range Comments SODIUM (test code=NA) 143 mmol/l 134.0-147.0 POTASSIUM (test code=K) 3.3 mmol/L 3.6-5.2 CHLORIDE (test code=CL) 105 mmol/l 98.0-107.0 CARBON DIOXIDE (test code=CO2) 30.6 mmol/l 21.0-33.0 ANION GAP (test code=GAP) 10.7 0-20 GLUCOSE (test code=GLU) 184 mg/dl 70.0-110.0 BLOOD UREA NITROGEN (test code=BUN) 18 mg/dl 7.0-18.0 CREATININE (test code=CREAT) 0.68 mg/dL 0.60-1.30 GFR NON BLACK (test code=GFRNONBLACK) 96 mL/min 90-95 GFR BLACK (test code=GFRBLACK) 116 mL/min 109-115 CALCIUM (test code=CA) 8.9 mg/dl 8.0-10.5 [id number] 07:56:00* Test Item Value Reference Range Comments MAGNESIUM (test code=MAG) 1.7 mg/dl 1.8-2.4 B-TYPE NATRIURETIC [id number] 07:56:00* Test Item Value Reference Range Comments B-TYPE NATRIURETIC PEPTIDE (test code=BNP) 34.9 PG/ML 5-100 BASIC METABOLIC [id number] 07:42:00* Test Item Value Reference Range Comments SODIUM (test code=NA) 143 mmol/l 134.0-147.0 POTASSIUM (test code=K) 3.3 mmol/L 3.6-5.2 CHLORIDE (test code=CL) 105 mmol/l 98.0-107.0 CARBON DIOXIDE (test code=CO2) 30.6 mmol/l 21.0-33.0 ANION GAP (test code=GAP) 10.7 0-20 GLUCOSE (test code=GLU) 184 mg/dl 70.0-110.0 BLOOD UREA NITROGEN (test code=BUN) 18 mg/dl 7.0-18.0 CREATININE (test code=CREAT) 0.68 mg/dL 0.60-1.30 GFR NON BLACK (test code=GFRNONBLACK) 96 mL/min 90-95 GFR BLACK (test code=GFRBLACK) 116 mL/min 109-115 CALCIUM (test code=CA) 8.9 mg/dl 8.0-10.5 [id number] 07:42:00* Test Item Value Reference Range Comments MAGNESIUM (test code=MAG) 1.7 mg/dl 1.8-2.4 B-TYPE NATRIURETIC [id number] 07:42:00* Test Item Value Reference Range Comments B-TYPE NATRIURETIC PEPTIDE (test code=BNP) PG/ML 5-100 CBC W/AUTO [id number] 07:26:00* Test Item Value Reference Range Comments WHITE BLOOD CELL (test code=WBC) 7.2 K/mm3 4.5-11.0 RED BLOOD CELL (test code=RBC) 2.73 M/mm3 3.80-5.20 HEMOGLOBIN (test code=HGB) 8.1 gm/dL 12.0-16.0 HEMATOCRIT (test code=HCT) 26.2 % 36.0-48.0 MEAN CELL VOLUME (test code=MCV) 96.0 UM3 82.0-99.0 MEAN CELL HGB (test code=MCH) 29.7 UUG 25.5-32.5 MEAN CELL HGB CONCETRATION (test code=MCHC) 30.9 gm/dL 29.0-35.5 RED CELL DISTRIBUTION WIDTH (test code=RDW) 15.3 % 11.5-15.0 PLATELET COUNT (test code=PLT) 212 K/mm3 150-400 MEAN PLATELET VOLUME (test code=MPV) 11.2 fl 7.4-10.4 NEUTROPHIL % (test code=NT%) 58.7 % 49.0-76.0 LYMPHOCYTE % (test code=LY%) 32.4 % 23.0-38.0 MONOCYTE % (test code=MO%) 5.0 % 1.0-10.0 EOSINOPHIL % (test code=EO%) 3.2 % 1.0-5.0 BASOPHIL % (test code=BA%) 0.1 % 0.0-1.0 NEUTROPHIL # (test code=NT#) 4.2 K/mm3 2.4-6.3 LYMPHOCYTE # (test code=LY#) 2.3 K/mm3 1.2-4.0 MONOCYTE # (test code=MO#) 0.4 K/mm3 0.0-0.6 EOSINOPHIL # (test code=EO#) 0.2 K/MM3 0.0-0.7 BASOPHIL # (test code=BA#) 0.0 K/mm3 0.0-0.2 [id number] 04:08:00* Test Item Value Reference Range Comments GLUBED (test code=GLUBED) 191 mg/dL 70-110 [id number] 13:31:00* Test Item Value Reference Range Comments GLUBED (test code=GLUBED) 203 mg/dL 70-110 VANCOMYCIN [id number] 12:09:00* Test Item Value Reference Range Comments VANCOMYCIN TROUGH (test code=VANCT) 8.8 mcg/mL 10-20 Other disease associated reference ranges: 10 - 15 mcg/mL Cellulitis, urinary tract infection 15 - 20 mcg/mL Bacteremia, infective endocarditis, osteomyelitis, meningitis, pneumonia, severe skin/soft tissue infection, spinal abscess Specimen comments: prior to the next [id number] 06:10:00* Test Item Value Reference Range Comments GLUBED (test code=GLUBED) 164 mg/dL 70-110 [id number] 06:10:00* Test Item Value Reference Range Comments GLUBED (test code=GLUBED) 209 mg/dL 70-110 [id number] 06:10:00* Test Item Value Reference Range Comments GLUBED (test code=GLUBED) 179 mg/dL 70-110 - XR CHEST 1 [id number] 04:47:00 FAX: Petey Panchal MD [phone] [place]: St: ADM FAX: Simon Martínez [phone] FAX: Karin Gamez [phone] Name: HIGINIO MACIAS [facility] : 1965 Age/S: 53/F [address] [facility] Unit #: [id number] Loc: [address] Phys: [place] [address] Acct: [id number] Dis Date: Status: ADM IN PH ONE #: [phone] Exam Date: 05/29/2018 0439 FAX #: [phone] Reason: Pulmonary infiltrates, resp. failure, drug OD EXAMS: CPT CODE: [id number] XR CHEST 1 V 34548 AFTER HOURS SE RVICE ON: 05/29/2018 4:45 AM AP Portable Chest Locatio n Code M12 HISTORY: Pulmonary infiltrates, resp. failure, drug OD FINDINGS: There are extensive bilateral alveolar in filtrates with somewhat nodular appearance. Overall appearance has improv ed from 05/28/2018. There are layering bilateral pleural effusions. There is dense retrocardiac consolidation. There is no pneumothorax. ETT and N GT unchanged. IMPRESSION: Slightly impr akosua extensive bilateral alveolar infiltrates. Electronicall y Signed by Ricardo Tomlinson on 05/29/2018 at 8237 Reported and signed by: Ilsa alcantara M.D. CC: Petey Connor MD; Simon Myrick MD; Karin mckinnon MD Technologist: JADON Villalpando scrd Date/Time/By: 05/29/2018 (3152) : By: [email or web address] PAGE 1 Signed Report FAX: Brain Panchal MD [phone] [place]: St: ADM FAX: Simon Martínez [phone] FAX: Karin Gamez [phone] Name: STACEY SOFIAHIGINIO [facility] : 7 Age/S: 53/F [address] [facility] Unit #: [id number] Loc: [address] Phys: [place] [address] Acct: [id number] Dis Date: Status: ADM IN PHONE #: [phone] Exam Date: 05/29/2018 0439 FAX #: [phone] Reason: Pulmonary infiltrates, resp. failure, drug OD EXAMS: CPT CODE: [id number] XR CHEST 1 V 36309 <Continued> Orig Print D/T: S: 05/29/2018 (0450) PAGE 2 Signed Report [id number] 20:10:00* Test Item Value Reference Range Comments GLUBED (test code=GLUBED) 210 mg/dL 70-110 [id number] 20:09:00* Test Item Value Reference Range Comments GLUBED (test code=GLUBED) 173 mg/dL 70-110 [id number] 20:09:00* Test Item Value Reference Range Comments GLUBED (test code=GLUBED) 216 mg/dL 70-110 [id number] 20:09:00* Test Item Value Reference Range Comments GLUBED (test code=GLUBED) 170 mg/dL 70-110 [id number] 20:09:00* Test Item Value Reference Range Comments GLUBED (test code=GLUBED) 154 mg/dL 70-110 - XR CHEST 1 [id number] 07:10:00 FAX: Petey Panchal MD [phone] [place]: St: ADM FAX: Simon Martínez [phone] FAX: Karin Gamez [phone] Name: HIGINIO MACIAS [facility] : 1965 Age/S: 53/F [address] [facility] Unit #: [id number] Loc: E.IC[address] [place], [place] Phys: [place] [address] Acct: [id number] Dis Date: Status: ADM IN ONE #: [phone] Exam Date: 05/28/2018 0524 FAX #: [phone] Reason: Pulmonary infiltrates, resp. failure, drug OD EXAMS: CPT CODE: [id number] XR CHEST 1 V 20075 EXAM: - XR CH EST 1 V HISTORY: Respiratory failure Location code:C 3 COMPARISON: 05/27/2018 FINDINGS: Singl e AP view of the chest is provided. Endotracheal tube, enteric tube, and right approach vascular catheter are unchanged. Dense bilateral pulmonary opacities from the mid to lower lung zones are unchanged. There is obscu ration of the diaphragms. No pneumothorax is seen. IMPRES HUONG: 1. Unchanged dense bilateral pulmonary opacities. at 0710 Reported and si gned by: Samuel Parisi M.D. CC: Petey Connor MD; Eliza Myrick MD; Karin Adkins MD Technologist: MARITZA LEÓN; SURY GANDARA Trnscrd Date/Time/By: 05/28/2018 (2769) : By: [email or web address] PAGE 1 Signed Report FAX: Petey Panchal MD [phone] [place]: St: ADM FAX: Simon Martínez [phone] FAX: Karin Gamez [phone] Name: HIGINIO MACIAS [facility] : 1965 Age/S: 53/F [address] [facility] Unit #: [id number] Loc: E.IC03 [place], [place]: [place] [address] Acc t: [id number] Dis Date: Status: ADM IN PHONE #: [phone] Exam Date: 05/28/2018523 FAX #: [phone] Reason: Pulmonary infiltrates, resp. failure, drug OD EXAMS: CPT CODE: [id number] XR CHEST 1 V 35584 <Continued > Orig Print D/T: S: 05/28/2018 (5448) PAGE 2 Signed Report COMPREHENSIVE METABOLIC [id number] 05:26:00* Test Item Value Reference Range Comments SODIUM (test code=NA) 140 mmol/l 134.0-147.0 POTASSIUM (test code=K) 3.5 mmol/L 3.6-5.2 CHLORIDE (test code=CL) 105 mmol/l 98.0-107.0 CARBON DIOXIDE (test code=CO2) 26.3 mmol/l 21.0-33.0 ANION GAP (test code=GAP) 12.2 0-20 GLUCOSE (test code=GLU) 211 mg/dl 70.0-110.0 BLOOD UREA NITROGEN (test code=BUN) 9 mg/dl 7.0-18.0 CREATININE (test code=CREAT) 0.73 mg/dL 0.60-1.30 GFR NON BLACK (test code=GFRNONBLACK) 89 mL/min 90-95 GFR BLACK (test code=GFRBLACK) 107 mL/min 109-115 TOTAL PROTEIN (test code=PROT) 5.6 gm/dL 6.4-8.2 ALBUMIN (test code=ALB) 2.0 gm/dl 3.2-4.7 CALCIUM (test code=CA) 8.9 mg/dl 8.0-10.5 BILIRUBIN TOTAL (test code=BILT) 0.4 mg/dl 0.0-1.0 SGOT/AST (test code=AST) 13 Units/L 15.0-37.0 SGPT/ALT (test code=ALT) 10 Units/L 12.0-78.0 ALKALINE PHOSPHATASE TOTAL (test code=ALKP) 75 Units/L 50.0-136.0 [id number] 05:26:00* Test Item Value Reference Range Comments PHOSPHOROUS (test code=PHOS) 2.1 mg/dl 2.5-4.9 [id number] 05:26:00* Test Item Value Reference Range Comments MAGNESIUM (test code=MAG) 1.7 mg/dl 1.8-2.4 CBC W/AUTO [id number] 05:16:00* Test Item Value Reference Range Comments WHITE BLOOD CELL (test code=WBC) 16.1 K/mm3 4.5-11.0 RED BLOOD CELL (test code=RBC) 3.20 M/mm3 3.80-5.20 HEMOGLOBIN (test code=HGB) 9.4 gm/dL 12.0-16.0 HEMATOCRIT (test code=HCT) 30.2 % 36.0-48.0 MEAN CELL VOLUME (test code=MCV) 94.4 UM3 82.0-99.0 MEAN CELL HGB (test code=MCH) 29.4 UUG 25.5-32.5 MEAN CELL HGB CONCETRATION (test code=MCHC) 31.1 gm/dL 29.0-35.5 RED CELL DISTRIBUTION WIDTH (test code=RDW) 15.0 % 11.5-15.0 PLATELET COUNT (test code=PLT) 233 K/mm3 150-400 MEAN PLATELET VOLUME (test code=MPV) 11.2 fl 7.4-10.4 NEUTROPHIL % (test code=NT%) 84.1 % 49.0-76.0 LYMPHOCYTE % (test code=LY%) 12.7 % 23.0-38.0 MONOCYTE % (test code=MO%) 1.8 % 1.0-10.0 EOSINOPHIL % (test code=EO%) 0.3 % 1.0-5.0 BASOPHIL % (test code=BA%) 0.1 % 0.0-1.0 NEUTROPHIL # (test code=NT#) 13.6 K/mm3 2.4-6.3 LYMPHOCYTE # (test code=LY#) 2.1 K/mm3 1.2-4.0 MONOCYTE # (test code=MO#) 0.3 K/mm3 0.0-0.6 EOSINOPHIL # (test code=EO#) 0.1 K/MM3 0.0-0.7 BASOPHIL # (test code=BA#) 0.0 K/mm3 0.0-0.2 - XR CHEST 1 [id number] 07:14:00 FAX: Petey Panchal MD [phone] [place]: St: [facility] FAX: Simon Martínez [phone] FAX: Karin Gamez [phone] Name: HIGINIO MACIAS [facility] : 1965 Age/S: 53/F [address] [facility] Unit #: [id number] Loc: E.IC03 [place], [place]: [place] [address] Acct: [id number] Dis Date: Status: ADM IN PH ONE #: [phone] Exam Date: 05/27/2018 0546 FAX #: [phone] Reason: Pulmonary infiltrates, resp. failure, drug OD EXAMS: CPT CODE: [id number] XR CHEST 1 V 57333 EXAM: - XR CH EST 1 V HISTORY: Respiratory failure Location code:C 3 COMPARISON: 05/26/2018 FINDINGS: Sing le AP view of the chest is provided. Endotracheal tube, enteric tube, and right approach PICC are unchanged. Dense bilateral pulmonary opacities f rom the mid to lower lung zones have continued to progress. There is obsc uration of the diaphragms. No pneumothorax is seen. IMPRE SSION: 1. Progressive dense bilateral pulmonary opacities. at 0714 Reported and signed by: Samuel Parisi M.D. CC: Petey Connor MD; Simon Myrick MD; Karin Adkins MD Technologist: [facility] [employer] Trnscrd Date/Time/By: 05/27/2018 (0714) : By: Pete [email or web address] PAGE 1 Signed Report FAX: Petey Panchal MD [phone] [place]: St: ADM FAX: Simon Martínez [phone] FAX: Jesus Gamez [phone] Name: HIGINIO MACIAS [facility] : 1965 Age/S: 53/F [address] Unit #: [id number] Loc: E.IC03 [place], [place]: [place] [address] Acct: [id number] Dis Date: Status: ADM IN PHONE #: [phone] Exam Date: 05/27/2018 0546 FAX #: [phone] Reason: Pulmonary infiltrates, resp. failure, drug OD EXAMS: CPT CODE: [id number] XR CHEST 1 V 09307 < Continued> Orig Print D/T: S: 05/27/2018 (0717) PAGE 2 Signed Report COMPREHENSIVE METABOLIC [id number] 06:03:00* Test Item Value Reference Range Comments SODIUM (test code=NA) 138 mmol/l 134.0-147.0 POTASSIUM (test code=K) 3.4 mmol/L 3.6-5.2 CHLORIDE (test code=CL) 104 mmol/l 98.0-107.0 CARBON DIOXIDE (test code=CO2) 24.4 mmol/l 21.0-33.0 ANION GAP (test code=GAP) 13.0 0-20 GLUCOSE (test code=GLU) 219 mg/dl 70.0-110.0 BLOOD UREA NITROGEN (test code=BUN) 8 mg/dl 7.0-18.0 CREATININE (test code=CREAT) 0.79 mg/dL 0.60-1.30 GFR NON BLACK (test code=GFRNONBLACK) 81 mL/min 90-95 GFR BLACK (test code=GFRBLACK) 98 mL/min 109-115 TOTAL PROTEIN (test code=PROT) 5.6 gm/dL 6.4-8.2 ALBUMIN (test code=ALB) 2.2 gm/dl 3.2-4.7 CALCIUM (test code=CA) 8.7 mg/dl 8.0-10.5 BILIRUBIN TOTAL (test code=BILT) 0.4 mg/dl 0.0-1.0 SGOT/AST (test code=AST) 17 Units/L 15.0-37.0 SGPT/ALT (test code=ALT) 13 Units/L 12.0-78.0 ALKALINE PHOSPHATASE TOTAL (test code=ALKP) 79 Units/L 50.0-136.0 CBC W/AUTO [id number] 05:27:00* Test Item Value Reference Range Comments WHITE BLOOD CELL (test code=WBC) 16.5 K/mm3 4.5-11.0 RED BLOOD CELL (test code=RBC) 3.53 M/mm3 3.80-5.20 HEMOGLOBIN (test code=HGB) 10.6 gm/dL 12.0-16.0 HEMATOCRIT (test code=HCT) 32.9 % 36.0-48.0 MEAN CELL VOLUME (test code=MCV) 93.2 UM3 82.0-99.0 MEAN CELL HGB (test code=MCH) 30.0 UUG 25.5-32.5 MEAN CELL HGB CONCETRATION (test code=MCHC) 32.2 gm/dL 29.0-35.5 RED CELL DISTRIBUTION WIDTH (test code=RDW) 14.8 % 11.5-15.0 PLATELET COUNT (test code=PLT) 283 K/mm3 150-400 MEAN PLATELET VOLUME (test code=MPV) 10.7 fl 7.4-10.4 NEUTROPHIL % (test code=NT%) 87.6 % 49.0-76.0 LYMPHOCYTE % (test code=LY%) 8.9 % 23.0-38.0 MONOCYTE % (test code=MO%) 2.5 % 1.0-10.0 EOSINOPHIL % (test code=EO%) 0.1 % 1.0-5.0 BASOPHIL % (test code=BA%) 0.2 % 0.0-1.0 NEUTROPHIL # (test code=NT#) 14.5 K/mm3 2.4-6.3 LYMPHOCYTE # (test code=LY#) 1.5 K/mm3 1.2-4.0 MONOCYTE # (test code=MO#) 0.4 K/mm3 0.0-0.6 EOSINOPHIL # (test code=EO#) 0.0 K/MM3 0.0-0.7 BASOPHIL # (test code=BA#) 0.0 K/mm3 0.0-0.2 [id number] 02:57:00* Test Item Value Reference Range Comments GLUBED (test code=GLUBED) 191 mg/dL 70-110 [id number] 02:57:00* Test Item Value Reference Range Comments GLUBED (test code=GLUBED) 215 mg/dL 70-110 [id number] 02:57:00* Test Item Value Reference Range Comments GLUBED (test code=GLUBED) 236 mg/dL 70-110 [id number] 02:57:00* Test Item Value Reference Range Comments GLUBED (test code=GLUBED) 282 mg/dL 70-110 [id number] 02:57:00* Test Item Value Reference Range Comments GLUBED (test code=GLUBED) 209 mg/dL 70-110 HEPATIC FUNCTION PANEL [id number] 23:05:00* Test Item Value Reference Range Comments TOTAL PROTEIN (test code=PROT) 5.7 GM/DL 6.0-8.1 ALBUMIN (test code=ALB) 2.3 gm/dL 3.2-4.7 BILIRUBIN TOTAL (test code=BILT) 0.3 mg/dl 0.0-1.0 BILIRUBIN DIRECT (test code=BILD) 0.1 mg/dl 0.0-0.3 SGOT/AST (test code=AST) 18 Units/L 15.0-37.0 SGPT/ALT (test code=ALT) 14 Units/L 12.0-78.0 ALKALINE PHOSPHATASE TOTAL (test code=ALKP) 75 Units/L 50.0-136.0 [id number] 23:05:00* Test Item Value Reference Range Comments ACETAMINOPHEN (test code=ACET) 3.3 mcg/ml 10.0-30.0 Result is in Microgram per milliliter. ARTERIAL BLOOD [id number] 17:17:00* Test Item Value Reference Range Comments ARTERIAL BLOOD GAS PH (test code=PHA) 7.350 7.350-7.450 ARTERIAL BLOOD GAS PCO2 (test code=PCO2A) 40.4 mmHg 35.0-45.0 ARTERIAL BLOOD GAS PO2 (test code=PO2A) 75.7 mmHg >80.0 BICARBONATE TOTAL HCO3 (test code=HCO3) 21.8 MMOL/L 22.0-26.0 BASE EXCESS (test code=SHERWIN) -3.5 MMOL/L -4.0-4.0 ABG O2 SATURATION (test code=SATA) 94.5 % 92.0-99.0 FIO2 (test code=FIO2A) 60.0 ABG VENT MODE (test code=MODEA) Assist Control ABG VENT RESP RATE (test code=RRA) 15.0 /MIN ABG TIDAL VOLUME (test code=TVA) 500.0 mL ABG PEEP (test code=PEEPA) 8.0 cmH2O ABG SITE (test code=SITEA) LR ALLENS TEST (test code=ALLENS) Unable TOTAL HGB (test code=THB) 12.3 g/dL 12.0-16.0 CARBOXYHEMOGLOBIN (test code=HOHGBT) 0.6 % THgb 0.0-1.5 METHEMOGLOBIN (test code=METHGB) 0.3 % 0.0-1.5 NORMAL <2.0POTENTIALLY TOXIC >20.0 - CT HEAD/BRAIN W/O [id number] 12:28:00 FAX: Petey Panchal MD [phone] [place]: St: [facility] FAX: Orestes CardenasKarin kennedy [phone] Name: HIGINIO MACIAS [facility] : 1965 Age/S: 53/F [address] [facility] Unit: [id number] Loc: E.IC03 [place], [place]: [place] [address] Acct: [id number] Dis Date: Status: ADM IN PHONE #: [phone] Exam Date: 05/26/2018 1224 FAX #: [phone] Reason: AMS EXAMS: CPT CODE: [id number] CT HEAD/BRAIN W/O CONT 81490 EXAMINATION: - CT HEAD/BRAIN W/O CONT. LOCATION: S17. HISTORY: AMS, overdose, respiratory failure. CO MPARISON: MR brain 06/10/2016. TECHNIQUE: Routine CT of the head wa s performed without intravenous contrast as per protocol. One or more the following dose reduction techniques were used: Automated exposure control, adjustment of mA and/or kV according to patient size, and use of iterative reconstruction technique. FINDINGS: Partial visualization of ET and NG tube. Examination is limited due to patient positioning. Brain Parenchyma: No hemorrhage or infarction. No mass effect or midline shift. Extra Axial Spaces: Unremarkable. Ventricular System: Unremarkable. Osseous Structures: Unremarkab le. Visualized Paranasal Sinuses: Opacification of bilateral ethm oid cells. IMPRESSION: No acute intracr anial abnormality nor hemorrhage. at 0550 Reported and signed by: Geoff Gonzalez M.D. PAGE 1 Signed Report (CONTIN UED) FAX: Petey Panchal MD [phone] [place]: St: [facility] FAX: Karin Gamez [phone] Name: HIGINIO MACIAS [facility] : 1965 Age/S: 53/F [address] [facility] Unit: [id number] Loc: E.IC03 [place], [place]: [place] [address] Acct: [id number] Dis Date: Status: ADM IN PHONE #: [phone] Exam Date: 05/26/2018 1224 FAX #: [phone] Reason: AMS EXAMS: CPT CODE: [id number] CT HEAD/BRAIN W/O CONT 33743 <Continued> CC: Petey Connor MD; Karin Adkins MD Technologist: [facility] Dt/Tm: 05/26/2018 (2937) [email or web address] Orig Print D/T: S: 05/26/2018 (2542 PAGE 2 Signed Report LACTIC [id number] 11:28:00* Test Item Value Reference Range Comments LACTIC ACID (test code=LACT) 3.7 MMOL/L 0.4-2.0 - XR CHEST 1 [id number] 07:27:00 FAX: Petey Panchal MD [phone] [place]: St: ADM FAX: Simon Martínez [phone] FAX: Orestes Karin Adkins [phone] Name: RAMANJonahHIGINIO [facility] : 1965 Age/S: 53/F [address] [facility] Unit #: [id number] Loc: E.03 [place], [place]: [place] [address] Acct: [id number] Dis Date: Status: ADM IN ONE #: [phone] Exam Date: 05/26/2018 0541 FAX #: [phone] Reason: Pulmonary infiltrates, resp. failure, drug OD EXAMS: CPT CODE: [id number] XR CHEST 1 V 69294 EXAM: - XR CH EST 1 V HISTORY: Respiratory failure Location code:C 3 COMPARISON: 05/25/2018 FINDINGS: Sing le AP view of the chest is provided. Endotracheal tube, enteric tube, and right approach PICC are unchanged. Dense bilateral pulmonary opacities f rom the mid to lower lung zones have progressed particularly on the right. There is obscuration of the diaphragms. No pneumothorax is seen. IMPRESSION: 1. Progressive dense bilateral pulmonary opacities concerning for worsening edema or pneumonia with small effusions. at 0727 Rep orted and signed by: Samuel Parisi M.D. CC: Petey Connor MD; Simon Myrick MD; Karin Adkins MD Technologist: [facility] Trnscrd Date/Time/By: 05/26/2018 (0717) : By: [email or web address].[email or web address] PAGE 1 Signed Report FAX: Petey Panchal MD [phone] [place]: St: ADM FAX: Simon Martínez [phone] FAX: Karin Snowden [phone] Name: HIGINIO MACIAS [facility] [place] : 1965 Age/S: 53/F [address] [facility] Unit #: [id number] Loc: [address] [place]: [place] [address] Acct: [id number] Dis Date: Status: ADM IN PHONE #: [phone] Exam Date: 05/26/2018 05 FAX #: [phone] Reason: Pulmonary infiltrates, resp. fa ilure, drug OD EXAMS: CPT COD E: [id number] XR CHEST 1 V 61038 <Continued> Orig Print D/T: S: 05/26/2018 (0790) PAGE 2 Signed Report LACTIC [id number] 07:10:00* Test Item Value Reference Range Comments LACTIC ACID (test code=LACT) 3.5 MMOL/L 0.4-2.0 CBC W/MANUAL [id number] 06:17:00* Test Item Value Reference Range Comments WHITE BLOOD CELL (test code=WBC) 8.5 K/mm3 4.5-11.0 RED BLOOD CELL (test code=RBC) 3.85 M/mm3 3.80-5.20 HEMOGLOBIN (test code=HGB) 11.4 gm/dL 12.0-16.0 HEMATOCRIT (test code=HCT) 36.6 % 36.0-48.0 MEAN CELL VOLUME (test code=MCV) 95.1 UM3 82.0-99.0 MEAN CELL HGB (test code=MCH) 29.6 UUG 25.5-32.5 MEAN CELL HGB CONCETRATION (test code=MCHC) 31.1 gm/dL 29.0-35.5 RED CELL DISTRIBUTION WIDTH (test code=RDW) 14.2 % 11.5-15.0 PLATELET COUNT (test code=PLT) 287 K/mm3 150-400 MEAN PLATELET VOLUME (test code=MPV) 10.8 fl 7.4-10.4 NEUTROPHIL % (test code=NT%) 86.3 % 49.0-76.0 LYMPHOCYTE % (test code=LY%) 10.4 % 23.0-38.0 MONOCYTE % (test code=MO%) 3.0 % 1.0-10.0 EOSINOPHIL % (test code=EO%) 0.0 % 1.0-5.0 BASOPHIL % (test code=BA%) 0.1 % 0.0-1.0 NEUTROPHIL # (test code=NT#) 7.3 K/mm3 2.4-6.3 LYMPHOCYTE # (test code=LY#) 0.9 K/mm3 1.2-4.0 MONOCYTE # (test code=MO#) 0.3 K/mm3 0.0-0.6 EOSINOPHIL # (test code=EO#) 0.0 K/MM3 0.0-0.7 BASOPHIL # (test code=BA#) 0.0 K/mm3 0.0-0.2 TOTAL CELLS COUNTED (test code=TCC) 100 #CELLS SEGMENTED NEUTROPHILS (test code=SEG) 63 % 50.0-70.0 BAND NEUTROPHIL (test code=BAND) 17 % 1.0-4.0 LYMPHOCYTE (test code=LYMPH) 16 % 20-40 MONOCYTE (test code=MON) 4 % 0-10 MORPHOLOGY COMMENT (test code=MOC) NM PLATELET ESTIMATE (test code=PLTEST) ADQ PLATELET MORPHOLOGY (test code=PLTMORPH) NORMAL Comments to [employer] Managing Director: Patient is currently in the ED waiting on a bedCBC W/MANUAL [id number] 06:14:00* Test Item Value Reference Range Comments WHITE BLOOD CELL (test code=WBC) 8.5 K/mm3 4.5-11.0 RED BLOOD CELL (test code=RBC) 3.85 M/mm3 3.80-5.20 HEMOGLOBIN (test code=HGB) 11.4 gm/dL 12.0-16.0 HEMATOCRIT (test code=HCT) 36.6 % 36.0-48.0 MEAN CELL VOLUME (test code=MCV) 95.1 UM3 82.0-99.0 MEAN CELL HGB (test code=MCH) 29.6 UUG 25.5-32.5 MEAN CELL HGB CONCETRATION (test code=MCHC) 31.1 gm/dL 29.0-35.5 RED CELL DISTRIBUTION WIDTH (test code=RDW) 14.2 % 11.5-15.0 PLATELET COUNT (test code=PLT) 287 K/mm3 150-400 MEAN PLATELET VOLUME (test code=MPV) 10.8 fl 7.4-10.4 NEUTROPHIL % (test code=NT%) 86.3 % 49.0-76.0 LYMPHOCYTE % (test code=LY%) 10.4 % 23.0-38.0 MONOCYTE % (test code=MO%) 3.0 % 1.0-10.0 EOSINOPHIL % (test code=EO%) 0.0 % 1.0-5.0 BASOPHIL % (test code=BA%) 0.1 % 0.0-1.0 NEUTROPHIL # (test code=NT#) 7.3 K/mm3 2.4-6.3 LYMPHOCYTE # (test code=LY#) 0.9 K/mm3 1.2-4.0 MONOCYTE # (test code=MO#) 0.3 K/mm3 0.0-0.6 EOSINOPHIL # (test code=EO#) 0.0 K/MM3 0.0-0.7 BASOPHIL # (test code=BA#) 0.0 K/mm3 0.0-0.2 SEGMENTED NEUTROPHILS (test code=SEG) % 50.0-70.0 LYMPHOCYTE (test code=LYMPH) % 20-40 Comments to Evp Managing Director: Patient is currently in the ED waiting on a bedCBC W/MANUAL [id number] 06:14:00* Test Item Value Reference Range Comments WHITE BLOOD CELL (test code=WBC) 8.5 K/mm3 4.5-11.0 RED BLOOD CELL (test code=RBC) 3.85 M/mm3 3.80-5.20 HEMOGLOBIN (test code=HGB) 11.4 gm/dL 12.0-16.0 HEMATOCRIT (test code=HCT) 36.6 % 36.0-48.0 MEAN CELL VOLUME (test code=MCV) 95.1 UM3 82.0-99.0 MEAN CELL HGB (test code=MCH) 29.6 UUG 25.5-32.5 MEAN CELL HGB CONCETRATION (test code=MCHC) 31.1 gm/dL 29.0-35.5 RED CELL DISTRIBUTION WIDTH (test code=RDW) 14.2 % 11.5-15.0 PLATELET COUNT (test code=PLT) 287 K/mm3 150-400 MEAN PLATELET VOLUME (test code=MPV) 10.8 fl 7.4-10.4 NEUTROPHIL % (test code=NT%) 86.3 % 49.0-76.0 LYMPHOCYTE % (test code=LY%) 10.4 % 23.0-38.0 MONOCYTE % (test code=MO%) 3.0 % 1.0-10.0 EOSINOPHIL % (test code=EO%) 0.0 % 1.0-5.0 BASOPHIL % (test code=BA%) 0.1 % 0.0-1.0 NEUTROPHIL # (test code=NT#) 7.3 K/mm3 2.4-6.3 LYMPHOCYTE # (test code=LY#) 0.9 K/mm3 1.2-4.0 MONOCYTE # (test code=MO#) 0.3 K/mm3 0.0-0.6 EOSINOPHIL # (test code=EO#) 0.0 K/MM3 0.0-0.7 BASOPHIL # (test code=BA#) 0.0 K/mm3 0.0-0.2 SEGMENTED NEUTROPHILS (test code=SEG) % 50.0-70.0 LYMPHOCYTE (test code=LYMPH) % 20-40 Comments to Ev[employer] Managing Director: Patient is currently in the ED waiting on a bedCOMPREHENSIVE METABOLIC [id number] 05:15:00* Test Item Value Reference Range Comments SODIUM (test code=NA) 140 mmol/l 134.0-147.0 POTASSIUM (test code=K) 3.7 mmol/L 3.6-5.2 CHLORIDE (test code=CL) 101 mmol/l 98.0-107.0 CARBON DIOXIDE (test code=CO2) 26.1 mmol/l 21.0-33.0 ANION GAP (test code=GAP) 16.6 0-20 GLUCOSE (test code=GLU) 312 mg/dl 70.0-110.0 BLOOD UREA NITROGEN (test code=BUN) 19 mg/dl 7.0-18.0 CREATININE (test code=CREAT) 1.27 mg/dL 0.60-1.30 GFR NON BLACK (test code=GFRNONBLACK) 47 mL/min 90-95 GFR BLACK (test code=GFRBLACK) 57 mL/min 109-115 TOTAL PROTEIN (test code=PROT) 5.7 gm/dL 6.4-8.2 ALBUMIN (test code=ALB) 2.5 gm/dl 3.2-4.7 CALCIUM (test code=CA) 8.4 mg/dl 8.0-10.5 BILIRUBIN TOTAL (test code=BILT) 0.4 mg/dl 0.0-1.0 SGOT/AST (test code=AST) 15 Units/L 15.0-37.0 SGPT/ALT (test code=ALT) 13 Units/L 12.0-78.0 ALKALINE PHOSPHATASE TOTAL (test code=ALKP) 71 Units/L 50.0-136.0 Comments to Ev[employer] Managing Director: Patient is currently in the ED waiting on a bedLIPID PROFILE (CORONARY RISK)2018-05-26 05:15:00* Test Item Value Reference Range Comments TRIGLYCERIDES (test code=TRIG) 59 mg/dl 40.0-150.0 CHOLESTEROL (test code=CHOL) 204 mg/dl 0.0-200.0 CHOLESTEROL/HDL RATIO (test code=CHOLHDL) 3.3 RATIO HDL CHOLESTEROL (test code=HDL) 61 mg/dl 30.0-60.0 LIPOPROTEIN LDL (test code=LDL) 146 mg/dl 70-130 Comments to Evp Managing Director: Patient is currently in the ED waiting on a [id number] 05:15:00* Test Item Value Reference Range Comments MAGNESIUM (test code=MAG) 1.2 mg/dl 1.8-2.4 Comments to Evp Managing Director: Patient is currently in the ED waiting on a bedCBC W/AUTO [id number] 05:05:00* Test Item Value Reference Range Comments WHITE BLOOD CELL (test code=WBC) 8.5 K/mm3 4.5-11.0 RED BLOOD CELL (test code=RBC) 3.85 M/mm3 3.80-5.20 HEMOGLOBIN (test code=HGB) 11.4 gm/dL 12.0-16.0 HEMATOCRIT (test code=HCT) 36.6 % 36.0-48.0 MEAN CELL VOLUME (test code=MCV) 95.1 UM3 82.0-99.0 MEAN CELL HGB (test code=MCH) 29.6 UUG 25.5-32.5 MEAN CELL HGB CONCETRATION (test code=MCHC) 31.1 gm/dL 29.0-35.5 RED CELL DISTRIBUTION WIDTH (test code=RDW) 14.2 % 11.5-15.0 PLATELET COUNT (test code=PLT) 287 K/mm3 150-400 MEAN PLATELET VOLUME (test code=MPV) 10.8 fl 7.4-10.4 NEUTROPHIL % (test code=NT%) 86.3 % 49.0-76.0 LYMPHOCYTE % (test code=LY%) 10.4 % 23.0-38.0 MONOCYTE % (test code=MO%) 3.0 % 1.0-10.0 EOSINOPHIL % (test code=EO%) 0.0 % 1.0-5.0 BASOPHIL % (test code=BA%) 0.1 % 0.0-1.0 NEUTROPHIL # (test code=NT#) 7.3 K/mm3 2.4-6.3 LYMPHOCYTE # (test code=LY#) 0.9 K/mm3 1.2-4.0 MONOCYTE # (test code=MO#) 0.3 K/mm3 0.0-0.6 EOSINOPHIL # (test code=EO#) 0.0 K/MM3 0.0-0.7 BASOPHIL # (test code=BA#) 0.0 K/mm3 0.0-0.2 Comments to Evp Managing Director: Patient is currently in the ED waiting on a [id number] 03:20:00* Test Item Value Reference Range Comments ACETAMINOPHEN (test code=ACET) 3.3 mcg/ml 10.0-30.0 Result is in Microgram per milliliter. SGOT/[id number] 01:28:00* Test Item Value Reference Range Comments SGOT/AST (test code=AST) 12 Units/L 15.0-37.0 SGPT/[id number] 01:28:00* Test Item Value Reference Range Comments SGPT/ALT (test code=ALT) 17 Units/L 12.0-78.0 CARDIAC ENZYMES [id number] 01:28:00* Test Item Value Reference Range Comments CREATINE KINASE (CK) (test code=CK) 115 Units/L 26-192 CKMB (test code=CKMBT) 2.5 NG/ML 0.5-5.0 DISREGARD CKMB INDEX CALCULATION WHENEVER THE CKMBT ISREPORTED <0.5 CKMB INDEX (test code=CKMBI) 2.2 0.0-2.5 TROPONIN-I (test code=TROPI) <0.02 NG/ML 0.00-0.06 REFERENCE RANGE TROPONIN I HEALTHY INDIVIDUALS: <0.06 ng/mL R/O ISCHEMIA: 0.07 - 0.60 ng/mL CUT-OFF RANGE FOR AMI: 0.60 - 1.5 ng/mL : Specimen comments: Please see the initial specimen in the lab as the first draw on this series Comments to Evp Managing Director: Please draw the 2nd specimen q4hrs after the first and the 3rd 8hrs after the first.Specime n comments: drawn Q4hrs then [id number] to Evp Managing Director: Patient is currently in the ED waiting on a bedPROTHROMBIN [id number] 01:24:00* Test Item Value Reference Range Comments PROTHROMBIN TIME PATIENT (test code=PTP) 11.7 SECONDS 9.9-12.8 INTERNATIONAL NORMAL RATIO (test code=INR) 1.0 0.89-1.14 THE INR IS TO BE USED ONLY FOR MONITORING ORAL ANTICOAGULANTTHERAPY. THE FOLLOWING ARE SUGGESTED RANGES FROM THEAMERICAN COLLEGE OF CHEST PHYSICIANS:INDICATION INR VALUEPROPHYLAXIS OF VENOUS THROMBOSIS (ORTHOPEDIC SURGERY) 2.0 - 3.0PROPHYLAXIS OF VENOUS THROMBOSIS (OTHER THAN HIGH-RISK SURGERY) 2.0 - 3.0TREATMENT OF DEEP VEIN THROMBOSIS OR PULMONARY EMBOLISM 2.0 - 3.0PREVENTION OF SYSTEMIC EMBOLISM TISSUE HEART VALVES 2.0 - 3.0 ACUTE MYOCARDIAL INFARCTION (TO PREVENT SYSTEMIC EMBOLISM) 2.0 - 3.0 ACUTE MYOCARDIAL INFARCTION (TO PREVENT RECURRENT INFARCT) 2.5 - 3.0 VALVULAR HEART DISEASE 2.0 - 3.0 ATRIAL FIBRILATION 2.0 - 3.0BILEAFLET MECHANICAL VALVE IN AORTIC POSITION 2.0 - 3.0MECHANICAL PROSTHETIC VALVES (HIGH RISK) 2.5 - 3.5PRESENCE OF LUPUS ANTICOAGULANT OR ANTIPHOSPHOLIPID ANTIBODIES 2.5 - 3.5 Is patient on anticoagulants? YTHROMBOPLASTIN TIME [id number] 01:24:00* Test Item Value Reference Range Comments THROMBOPLASTIN TIME PARTIAL (test code=PTT) 22.20 SECONDS 25.86-36.07 [facility] Therapeutic Range - APTT of 55.8-85.4 secondscorrelates with plasma heparin concentration of 0.2-0.4 u/mL New range effective - 05/24/2016 Is patient on anticoagulants? [id number] 23:15:00* Test Item Value Reference Range Comments ACETAMINOPHEN (test code=ACET) 3.3 mcg/ml 10.0-30.0 Result is in Microgram per milliliter. - XR ABDOMEN 1 [id number] 22:40:00 FAX: Petey Panchal MD [phone] [place]: St: [facility] FAX: Karin Gamez [phone] Name: HIGINIO MACIAS [facility] : 1965 Age/S: 53/F [address] [facility] Unit #: [id number] Loc: [address] Phys: [place] [id number] Acct: [id number] Dis Date: Status: ADM IN PHONE #: [phone] Exam Date: 05/25/2018 1844 FAX #: [phone] Reason: EVALUATE NG TUBE POSI TION EXAMS: CPT CODE: [id number] XR ABDOMEN 1 V 40641 HISTORY: Evaluate nasogastric tube position Location: C3 COMPARISON: None FINDINGS: Nasogastric tube is noted with tip overlying the distal stomach. No evidence of obstruction. IMPRESSION: 1. Nasogastric tube with tip over lying the distal stomach. at 2240 Reported and signed by: Sanjiv palacios M.D. CC: Petey Connor MD; Karin Adkins MD Technologist: NARDA CASTELLANOS; ARACELY TOM Trnscrd Date/Time/By: 05/25/2018 (4270) : By: [email or web address] PAGE 1 Signed Report FAX: Petey Panchal MD [phone] [place]: St: ADM FAX: Karin Mcintyre [phone] [facility] 1965 Age/S: 53/F [address] [facility] Unit #: [id number] Loc: E.IC03 [place], [place] Phys: [place] [id number] Acct: [id number] Dis Date: Status: ADM IN PHONE #: [phone] Exam Date: 05/25/2018 1844 FAX #: [phone] Reason: EVALUATE NG TUBE POSITION EXAMS: CPT CODE: [id number] XR ABDOMEN 1 V 79571 < Continued> Orig Print D/T: S: 05/25/2018 (8320) PAGE 2 Signed Report CARDIAC ENZYMES [id number] 21:01:00* Test Item Value Reference Range Comments CREATINE KINASE (CK) (test code=CK) 122 Units/L 26-192 CKMB (test code=CKMBT) 1.7 NG/ML 0.5-5.0 DISREGARD CKMB INDEX CALCULATION WHENEVER THE CKMBT ISREPORTED <0.5 CKMB INDEX (test code=CKMBI) 1.4 0.0-2.5 TROPONIN-I (test code=TROPI) <0.02 NG/ML 0.00-0.06 REFERENCE RANGE TROPONIN I HEALTHY INDIVIDUALS: <0.06 ng/mL R/O ISCHEMIA: 0.07 - 0.60 ng/mL CUT-OFF RANGE FOR AMI: 0.60 - 1.5 ng/mL : Specimen comments: Please see the initial specimen in the lab as the first draw on this series Comments to Evp Managing Director: Please draw the 2nd specimen q4hrs after the first and the 3rd 8hrs after the first.Specime n comments: drawn Q4hrs then [id number] to Evp Managing Director: Patient is currently in the ED waiting on a [id number] 19:07:00* Test Item Value Reference Range Comments GLUBED (test code=GLUBED) 184 mg/dL 70-110 ARTERIAL BLOOD [id number] 17:21:00* Test Item Value Reference Range Comments ARTERIAL BLOOD GAS PH (test code=PHA) 7.304 7.350-7.450 ARTERIAL BLOOD GAS PCO2 (test code=PCO2A) 51.5 mmHg 35.0-45.0 ARTERIAL BLOOD GAS PO2 (test code=PO2A) 230.7 mmHg >80.0 BICARBONATE TOTAL HCO3 (test code=HCO3) 25.0 MMOL/L 22.0-26.0 BASE EXCESS (test code=SHERWIN) -1.8 MMOL/L -4.0-4.0 ABG O2 SATURATION (test code=SATA) 99.6 % 92.0-99.0 FIO2 (test code=FIO2A) 100.0 ABG VENT MODE (test code=MODEA) Assist Control ABG VENT RESP RATE (test code=RRA) 15.0 /MIN ABG TIDAL VOLUME (test code=TVA) 500.0 mL ABG PEEP (test code=PEEPA) 5.0 cmH2O ABG SITE (test code=SITEA) RR ALLENS TEST (test code=ALLENS) Yes TOTAL HGB (test code=THB) 12.1 g/dL 12.0-16.0 CARBOXYHEMOGLOBIN (test code=HOHGBT) 0.4 % THgb 0.0-1.5 METHEMOGLOBIN (test code=METHGB) 0.3 % 0.0-1.5 NORMAL <2.0POTENTIALLY TOXIC >20.0 COMPREHENSIVE METABOLIC [id number] 16:56:00* Test Item Value Reference Range Comments SODIUM (test code=NA) 140 mmol/l 134.0-147.0 POTASSIUM (test code=K) 3.4 mmol/L 3.6-5.2 CHLORIDE (test code=CL) 105 mmol/l 98.0-107.0 CARBON DIOXIDE (test code=CO2) 25.5 mmol/l 21.0-33.0 ANION GAP (test code=GAP) 12.9 0-20 GLUCOSE (test code=GLU) 173 mg/dl 70.0-110.0 BLOOD UREA NITROGEN (test code=BUN) 14 mg/dl 7.0-18.0 CREATININE (test code=CREAT) 0.90 mg/dL 0.60-1.30 GFR NON BLACK (test code=GFRNONBLACK) 70 mL/min 90-95 GFR BLACK (test code=GFRBLACK) 84 mL/min 109-115 TOTAL PROTEIN (test code=PROT) 5.9 GM/DL 6.0-8.1 ALBUMIN (test code=ALB) 2.8 gm/dL 3.2-4.7 CALCIUM (test code=CA) 8.1 mg/dl 8.0-10.5 BILIRUBIN TOTAL (test code=BILT) 0.2 mg/dl 0.0-1.0 SGOT/AST (test code=AST) 14 Units/L 15.0-37.0 SGPT/ALT (test code=ALT) 17 Units/L 12.0-78.0 ALKALINE PHOSPHATASE TOTAL (test code=ALKP) 81 Units/L 50.0-136.0 SAMPLE GROSSLY HEMOLYSED/ CALLED [facility] AT 1613 FOR REDRAW.[id number] 16:56:00* Test Item Value Reference Range Comments TROPONIN-I (test code=TROPI) <0.02 NG/ML 0.00-0.06 REFERENCE RANGE TROPONIN I HEALTHY INDIVIDUALS: <0.06 ng/mL R/O ISCHEMIA: 0.07 - 0.60 ng/mL CUT-OFF RANGE FOR AMI: 0.60 - 1.5 ng/mL SAMPLE GROSSLY HEMOLYSED/ CALLED [facility] AT 1613 FOR REDRAW.ACETAMINOPHEN 2018-05-25 16:56:00* Test Item Value Reference Range Comments ACETAMINOPHEN (test code=ACET) 2.8 mcg/ml 10.0-30.0 Result is in Microgram per milliliter. SAMPLE GROSSLY HEMOLYSED/ CALLED [facility] AT 1613 FOR REDRAW.[id number] 16:56:00* Test Item Value Reference Range Comments SALICYLATE (test code=YURI) 1.4 mg/dl 2.8-20.0 SAMPLE GROSSLY HEMOLYSED/ CALLED [facility] AT 1613 FOR REDRAW.[id number] 16:56:00* Test Item Value Reference Range Comments ALCOHOL (test code=ALC) 0.00 gm/dL 0.00-0.00 ETHYL ALCOHOL VALUES - INTERPRETATION: 0.050 GM/DL - NOT INTOXICATED 0.100 GM/DL - INTOXICATED 0.350-0.450 GM/DL - SEVERELY INTOXICATED 0.550 GM/DL- FATAL INTOXICATION SAMPLE GROSSLY HEMOLYSED/ CALLED [facility] AT 1613 FOR REDRAW.COMPREHENSIVE METABOLIC [id number] 16:42:00* Test Item Value Reference Range Comments SODIUM (test code=NA) 140 mmol/l 134.0-147.0 POTASSIUM (test code=K) 3.4 mmol/L 3.6-5.2 CHLORIDE (test code=CL) 105 mmol/l 98.0-107.0 CARBON DIOXIDE (test code=CO2) 25.5 mmol/l 21.0-33.0 ANION GAP (test code=GAP) 12.9 0-20 GLUCOSE (test code=GLU) mg/dl 70.0-110.0 BLOOD UREA NITROGEN (test code=BUN) mg/dl 7.0-18.0 CREATININE (test code=CREAT) mg/dL 0.60-1.30 GFR NON BLACK (test code=GFRNONBLACK) mL/min 90-95 GFR BLACK (test code=GFRBLACK) mL/min 109-115 TOTAL PROTEIN (test code=PROT) gm/dL 6.4-8.2 ALBUMIN (test code=ALB) gm/dl 3.2-4.7 CALCIUM (test code=CA) mg/dl 8.0-10.5 BILIRUBIN TOTAL (test code=BILT) mg/dl 0.0-1.0 SGOT/AST (test code=AST) Units/L 15.0-37.0 SGPT/ALT (test code=ALT) Units/L 12.0-78.0 ALKALINE PHOSPHATASE TOTAL (test code=ALKP) Units/L 50.0-136.0 SAMPLE GROSSLY HEMOLYSED/ CALLED [facility] AT 1613 FOR REDRAW.[id number] 16:42:00* Test Item Value Reference Range Comments TROPONIN-I (test code=TROPI) NG/ML 0.00-0.06 SAMPLE GROSSLY HEMOLYSED/ CALLED [facility] AT 1613 FOR REDRAW.ACETAMINOPHEN 2018-05-25 16:42:00* Test Item Value Reference Range Comments ACETAMINOPHEN (test code=ACET) mcg/ml 10.0-30.0 SAMPLE GROSSLY HEMOLYSED/ CALLED [facility] AT 1613 FOR REDRAW.[id number] 16:42:00* Test Item Value Reference Range Comments SALICYLATE (test code=YURI) mg/dl 2.8-20.0 SAMPLE GROSSLY HEMOLYSED/ CALLED [facility] AT 1613 FOR REDRAW.[id number] 16:42:00* Test Item Value Reference Range Comments ALCOHOL (test code=ALC) gm/dL 0.00-0.00 SAMPLE GROSSLY HEMOLYSED/ CALLED [facility] AT 1613 FOR REDRAW.DRUGS OF ABUSE SCREEN [id number] 16:34:00* Test Item Value Reference Range Comments URN COCAINE (test code=COCAURN) NEGATIVE NEGATIVE Cocaine cut-off concentration: 300 ng/mL URN CANNABINOIDS (test code=CANNABURN) NEGATIVE NEGATIVE Cannabinoids cut-off concentration: 50 ng/mL URN AMPHETAMINE (test code=AMPHETURN) NEGATIVE NEGATIVE Amphetamine cut-off concentration: 1000 ng/mL URN BARBITURATE (test code=BARBITURN) NEGATIVE NEGATIVE Barbiturate cut-off concentration: 200 ng/mL URN BENZODIAZEPINE (test code=BENZOURN) POSITIVE NEGATIVE UNCONFIRMED INITIAL SCREENING ONLY; SUGGEST ADDITIONALCONFIRMATORY TESTING.Benzodiazepine cut-off concentration: 200 ng/mL URN OPIATES (test code=OPIATURN) NEGATIVE NEGATIVE Opiates cut-off concentration: 200 ng/mL URN PHENCYCLIDINE (PCP) (test code=PHENCURN) NEGATIVE NEGATIVE Phencyclidine(PCP) cut-off concentration: 25 ng/ml URN METHADONE (test code=METHAURN) NEGATIVE NEGATIVE Methadone cut-off concentration: 300 ng/mL URINALYSIS [id number] 16:34:00* Test Item Value Reference Range Comments UA COLOR (test code=COLU) YELLOW UA APPEARANCE (test code=APPU) CLEAR UA GLUCOSE DIPSTICK (test code=DGLUU) NORMAL mg/dl NORMAL UA BILIRUBIN DIPSTICK (test code=BILU) NEGATIVE mg/dL NEGATIVE UA KETONE DIPSTICK (test code=KETU) NEGATIVE mg/dl NEGATIVE UA SPECIFIC GRAVITY (test code=SGU) 1.020 1.000-1.030 UA BLOOD DIPSTICK (test code=SHANDRA) NEGATIVE Jaspreet/micL NEGATIVE UA PH DIPSTICK (test code=ROSIE) 6.5 5.0-9.0 UA PROTEIN DIPSTICK (test code=PROU) 15 mg/dl mg/dl NEGATIVE UA UROBILINIOGEN DIPSTICK (test code=URO) NORMAL mg/dl NORMAL UA NITRITE DIPSTICK (test code=BEBA) NEGATIVE NEGATIVE UA LEUKOCYTE ESTERASE DIPSTICK (test code=LEUU) 25 [place]/micL Wellington/micL NEGATIVE UA WBC (test code=WBCU) 5-10/HPF WBC/HPF NONE UA RBC (test code=RBCU) 1-3 RBC/HPF 0-3 UA EPITHELIAL CELLS (test code=EPIU) 2-5 EPI/HPF 0-3 UA BACTERIA (test code=BACU) FEW NONE - XR CHEST 1 [id number] 16:26:00 FAX: Karin Gamez [phone] [place]: St: REG Name: HIGINIO MORRELL [facility] : [birth year] Age/S: 53/F [address] [facility] [address] [address] Unit #: [id number] [place]: [place] [id number] Acct: [id number] Dis Date: Status: REG ER PHONE #: [phone] Exam Date: 05/25/2018 1612 FAX #: [phone] Reason: INTUBATION EXAMS: CPT CODE: [id number] XR CHEST 1 V 03637 Location: T18 CHEST X- RAY: Portable AP frontal projection, 05/25/18 CLINICAL HISTORY: line placement COMPARISON EXAMS: 03/08/18 chest x-ray exam FINDINGS: A right subclavian central line has been placed without pneumothorax . The tip of the central venous line is seen in the right atrium/distal SVC. Nasogastric tube appearing well situated. Distal tip not seen but the tube transverses the left hemidiaphragm. Heart size is prominent with an evolving left-sided effusion with evolv ing pulmonary venous engorgement and interstitial edema felt to be indicat alpa evolving CHF. No significant right-sided effusion. IMPRESSIO N: Adequacy of life support apparatus placement as noted above without pneumothorax. Right subclavian line is seen with the tip likely in the right atrium versus possibly the very distal SVC. Evolving fluid overload/CHF at 2150 Reported and signed by: Alina Rm M.D. CC: Karin park MD Technologist: NARDA CASTELLANOS Trnscrd Date/Time/By: 05/25/2018 (6510) : By: suzanna [email or web address] PAGE 1 Signed Report FAX: Karin Gamez [phone] [place]: St: REG ---- Name: HIGINIO MACIAS [facility] : 1965 Age/S: 53/F [address] [facility] Unit #: [id number] Loc: [place], [place]: [place] [id number] Acct: [id number] Dis Date: Status: REG ER PHONE # : [phone] Exam Date: 05/25/2018 1612 FAX #: Reason: INTUBATION EXAMS : CPT CODE: [id number] XR CHES T 1 V 44218 <Continued> Orig Print D/T: S: 05/25/2018 (8356) PAGE 2 Signed Report URINALYSIS [id number] 16:22:00* Test Item Value Reference Range Comments UA COLOR (test code=COLU) YELLOW UA APPEARANCE (test code=APPU) CLEAR UA GLUCOSE DIPSTICK (test code=DGLUU) NORMAL mg/dl NORMAL UA BILIRUBIN DIPSTICK (test code=BILU) NEGATIVE mg/dL NEGATIVE UA KETONE DIPSTICK (test code=KETU) NEGATIVE mg/dl NEGATIVE UA SPECIFIC GRAVITY (test code=SGU) 1.020 1.000-1.030 UA BLOOD DIPSTICK (test code=SHANDRA) NEGATIVE Jaspreet/micL NEGATIVE UA PH DIPSTICK (test code=ROSIE) 6.5 5.0-9.0 UA PROTEIN DIPSTICK (test code=PROU) 15 mg/dl mg/dl NEGATIVE UA UROBILINIOGEN DIPSTICK (test code=URO) NORMAL mg/dl NORMAL UA NITRITE DIPSTICK (test code=BEBA) NEGATIVE NEGATIVE UA LEUKOCYTE ESTERASE DIPSTICK (test code=LEUU) 25 [place]/micL Wellington/micL NEGATIVE UA WBC (test code=WBCU) WBC/HPF NONE UA RBC (test code=RBCU) RBC/HPF 0-3 UA EPITHELIAL CELLS (test code=EPIU) EPI/HPF 0-3 UA BACTERIA (test code=BACU) NONE CBC W/AUTO [id number] 16:09:00* Test Item Value Reference Range Comments WHITE BLOOD CELL (test code=WBC) 6.2 K/mm3 4.5-11.0 RED BLOOD CELL (test code=RBC) 3.94 M/mm3 3.80-5.20 HEMOGLOBIN (test code=HGB) 11.6 gm/dL 12.0-16.0 HEMATOCRIT (test code=HCT) 37.9 % 36.0-48.0 MEAN CELL VOLUME (test code=MCV) 96.2 UM3 82.0-99.0 MEAN CELL HGB (test code=MCH) 29.4 UUG 25.5-32.5 MEAN CELL HGB CONCETRATION (test code=MCHC) 30.6 gm/dL 29.0-35.5 RED CELL DISTRIBUTION WIDTH (test code=RDW) 14.3 % 11.5-15.0 PLATELET COUNT (test code=PLT) 307 K/mm3 150-400 MEAN PLATELET VOLUME (test code=MPV) 11.0 fl 7.4-10.4 NEUTROPHIL % (test code=NT%) 35.4 % 49.0-76.0 LYMPHOCYTE % (test code=LY%) 57.5 % 23.0-38.0 MONOCYTE % (test code=MO%) 4.2 % 1.0-10.0 EOSINOPHIL % (test code=EO%) 0.5 % 1.0-5.0 BASOPHIL % (test code=BA%) 0.3 % 0.0-1.0 NEUTROPHIL # (test code=NT#) 2.2 K/mm3 2.4-6.3 LYMPHOCYTE # (test code=LY#) 3.6 K/mm3 1.2-4.0 MONOCYTE # (test code=MO#) 0.3 K/mm3 0.0-0.6 EOSINOPHIL # (test code=EO#) 0.0 K/MM3 0.0-0.7 BASOPHIL # (test code=BA#) 0.0 K/mm3 0.0-0.2
== END ==
LOC: OR 06:29 → RAD 06:29 → EDSTATUS 09:30
PROVIDERS: ATTEND Otolaryngology
DX: J38.3 Other diseases of vocal cords (principal); R49.0 Dysphonia
CPT/HCPCS: 36415 ×2; 71046; 80048; 82948; 85025; 93005; J0131

== ENCOUNTER → 2019-04-25 | Day surgery (SDC) | payer OTHER ==
[2019-04-21 13:24] LABS: BASOPHILS % 0.3 % (0.0-1.0); EOSINOPHILS % 0.6 % (0.0-6.0); HEMATOCRIT 35.4 % (34.2-44.1); HEMOGLOBIN 11.4 g/dL (12.0-16.0); LYMPHOCYTES # (AUTO) 3.4 (1.0-3.2); LYMPHOCYTES % 51.1 % (18.0-39.1); MEAN CORPUSCULAR HEMOGLOBIN 30.1 pg (28-32); MEAN CORPUSCULAR HGB CONC 32.2 g/dL (31-35); MEAN CORPUSCULAR VOLUME 93.4 fL (81-99); MONOCYTES # (AUTO) 0.4 (0.2-0.8); NEUTROPHILS # (AUTO) 2.7 (2.1-6.9); NEUTROPHILS % 41.4 % (38.7-80.0); PLATELET COUNT 338 x10e3/uL (140-360); RED BLOOD COUNT 3.79 x10e6/uL (3.6-5.1)
[2019-04-21 13:29] LABS: ANION GAP 16.4 mmol/L (8-16); BLOOD UREA NITROGEN 11 mg/dL (7-26); BUN/CREATININE RATIO 15 (6-25); CALCIUM 9.4 mg/dL (8.4-10.2); CARBON DIOXIDE 31 mmol/L (22-29); CHLORIDE 101 mmol/L (98-107); CREATININE, SERUM 0.75 mg/dL (0.57-1.11); EST GLOMERULAR FILTRATION RATE > 60 ML/MIN (60-); GLUCOSE 121 mg/dL (74-118); POTASSIUM 3.4 mmol/L (3.5-5.1); SODIUM 145 mmol/L (136-145)
[~2019-04-25] MED LIST changes: -ACETAMINOPHEN 1000 MG/100 ML 100 ML IV ONE; +DEXAMETHASONE SOD PHOS INJ 4 MG/ML VIAL ONE; +FENTANYL CITRATE/PF 100MCG/2 ML INJ IV ONE; +FENTANYL CITRATE/PF 100MCG/2 ML INJ ONE; +LIDOCAINE 1% W/EPINEPHRINE 20 ML VIAL ONE; +LIDOCAINE HCL 2% LOCAL INJ 5 ML SDV VIAL INJ ONE; +ONDANSETRON HCL INJ 2MG/ML 2ML 2 MG/ML VIAL ONE; +PROPOFOL IV EMULSION 10 MG/ML 20 ML VIAL ONE; +ROCURONIUM BROMIDE 10 MG/ML 5ML VIAL ONE; +SEVOFLURANE INHAL SOLN 250 ML PEN BTL ONE; +SUCCINYLCHOLINE CHLORIDE 20 MG/ML 10ML VIAL ONE
[2019-04-25 09:30] VITALS: BP 111/63
--- NOTE | 2019-04-25 14:13 | Operative Report ---
DATE OF PROCEDURE: 04/25/2019 SURGEON: Dave Cintron MD PREOPERATIVE DIAGNOSIS: Hoarseness, right posterior true vocal cord mass. POSTOPERATIVE DIAGNOSIS: Hoarseness, right posterior true vocal cord mass. PROCEDURE PERFORMED: Direct operative laryngoscopy (with suspension microlaryngoscopy), excision of right posterior true vocal cord mass. SIGNIFICANT FINDINGS: Pedunculated spherical soft tissue mass attached to the right posterior true vocal cord (superior aspect) at the junction with the arytenoid. MAGNETOMETER OPERATOR: None. ANESTHESIA: General endotracheal tube anesthesia with 6.5 endotracheal tube. SPECIMENS REMOVED: Right posterior true vocal cord mass. ESTIMATED BLOOD LOSS: Less than 1 mL. COMPLICATIONS: None. INDICATIONS: The patient is a 53-year-old female with 3 months history of severe hoarseness, dysphagia (worse for solids), cough, postnasal drip, globus sensation, throat clearing, and mild throat pain. She is a nonsmoker. She has had no previous throat or neck surgery. Flexible fiberoptic nasopharyngoscopy in the office revealed a soft tissue mass in the right posterior true vocal cord at the junction with the arytenoid. She is scheduled for a direct operative laryngoscopy with suspension microlaryngoscopy and excision of right posterior true vocal cord mass under general anesthesia. Risks and complications of the procedures were thoroughly discussed with the patient and they include infection, bleeding, scarring, failure to improve, persistent (possibly worse) hoarseness, damage to teeth, gums, tongue, lips, and oral cavity, damage to the voice box resulting in permanent (worse) hoarseness, chronic throat pain, need for additional operations, need for blood transfusions, damage to surrounding nerves, blood vessels and muscles. She fully understands and gives consent. DESCRIPTION OF PROCEDURE: The patient was taken to the operating room and placed supine on the operating table where general anesthesia was achieved through orotracheal intubation with 6.5 ET tube. The eyes were taped. Shoulder roll was placed. Body was draped. Table was turned 90 degrees with the head towards the surgeon. A tooth guard was then placed over the upper teeth. Munira laryngoscope was then used to visualize the larynx, which was done without difficulty. The laryngoscope was then placed into suspension on the Bunch stand. The operating microscope was then brought into place and the larynx was visualized without difficulty. The vocal cords appeared to be clear bilaterally except for a round spherical soft tissue mass, which was pedunculated and attached to the mucosa on the superior aspect of the right posterior true vocal cord at the junction with the arytenoid. This was grasped with cup forceps and was excised at its base with Bellucci scissors. This was sent for permanent section analysis. Hemostasis was obtained with cottonoid pledgets soaked with Afrin. Following this, the endotracheal tube was then removed with the laryngoscope still in place. Further examination with both 0 and 30 degree rigid endoscopes revealed no other pathology and the anatomy appeared to be clear including the subglottis. The endotracheal tube was then replaced through the Munira laryngoscope, which was then removed with the endotracheal tube held in place. The ET tube was then reconnected to the anesthesia circuit. Tooth guard was then removed revealing no trauma to the teeth, gums, tongue, or lips. The patient was awakened in the operating room, extubated, and taken to the recovery room in good condition. MD LINDA Garza/DOMI /[id number] KAUSHIK
== END | disposition home or self-care (01) ==
LOC: OR 05:24
PROVIDERS: ATTEND Otolaryngology
DX: J38.3 Other diseases of vocal cords (principal); G47.33 Obstructive sleep apnea (adult) (pediatric); I45.10 Unspecified right bundle-branch block; J44.9 Chronic obstructive pulmonary disease, unspecified; I11.0 Hypertensive heart disease with heart failure; I50.9 Heart failure, unspecified; E11.9 Type 2 diabetes mellitus without complications; K21.9 Gastro-esophageal reflux disease without esophagitis; R07.9 Chest pain, unspecified; F41.9 Anxiety disorder, unspecified; F32.9 Major depressive disorder, single episode, unspecified; M19.90 Unspecified osteoarthritis, unspecified site; K58.9 Irritable bowel syndrome, unspecified; Z91.040 Latex allergy status; Z91.010 Allergy to peanuts; Z88.8 Allergy status to other drugs, medicaments and biological substances; Z91.018 Allergy to other foods; Z01.812 Encounter for preprocedural laboratory examination; Z79.02 Long term (current) use of antithrombotics/antiplatelets; Z86.718 Personal history of other venous thrombosis and embolism
CPT/HCPCS: 31541; 36415 ×2; 80048; 82948; 85025; 88305; J0330; J1100; J2001; J2405; J2704; J3010